=== PATIENT | female | born 1950 | race Caucasian/White ===

== ENCOUNTER 2020-04-10 12:25 | Outpatient (REF) | payer MEDICARE, SELFPAY ==
--- NOTE | 2020-04-10 12:35 | MM_ITS ---
EXAMINATION: BONE DENSITOMETRY CLINICAL INDICATION: Age-related osteoporosis without current pathological fracture.. COMPARISON: Previous BD dated 01/19/2017 and baseline BD dated 08/19/2006. TECHNIQUE: Using a [employer] DXA System (software version: 13.1) manufactured by [employer], dual-energy x-ray absorptiometry was performed of the lumbar spine and left hip. The images are of good technical quality. Summary results are attached. FINDINGS: AP SPINE L1-L4: Current: BMD 0.883 g/cm2, Z-score -0.5, T-score -2.5, osteoporosis, 0.2% increase from previous, 3.3% increase from baseline (<5% change is not significant). Prior: BMD 0.881 g/cm2. Baseline: BMD 0.855 g/cm2. LEFT FEMUR, NECK: Current: BMD 0.674 g/cm2, Z-score -0.7, T-score -2.6, osteoporosis. Prior: BMD 0.668 g/cm2. Baseline: BMD 0.708 g/cm2. LEFT FEMUR, TOTAL: Current: BMD 0.717 g/cm2, Z-score -0.5, T-score -2.3, osteopenia, 3.0% decrease from previous, 4.0% decrease from baseline (<5% change is not significant). Prior: BMD 0.739 g/cm2. Baseline: BMD 0.747 g/cm2. IDENTIFIED RISK FACTORS: Osteoporosis, tobacco use (current smoker). Early menopause, secondary osteoporosis, hysterectomy, bilateral oophorectomy. HISTORY OF FRACTURE: None listed. MEDICATIONS: Calcium supplements or multivitamin, vitamin D. MM/XR DEXA axial skeleton IMPRESSION: 1. DIAGNOSIS: Osteoporosis based on the lowest T-score value of -2.6 in the femoral neck applying World Health Organization criteria. 2. 10-YEAR FRACTURE RISK PREDICTION, FRAX: Major osteoporotic fracture (clinical spine, forearm, hip or shoulder) 10.8%. Hip fracture 4.5%. 3. Treatment Recommendations: NOF guidelines recommend consideration for treatment in postmenopausal women and men age 50 and older presenting with the following: -A hip or vertebral (clinical or morphometric) fracture. -T-score less than or equal to -2.5 at the femoral neck or spine after appropriate evaluation to exclude secondary causes. -Low bone mass at the hip or spine and a 10-year fracture probability by FRAX of greater than or equal to 3% for hip fracture or greater than or equal to 20% for major osteoporotic fracture based on the [place] adapted WHO algorithm. 4. Other Recommendations: All treatment decisions require clinical judgment and consideration of individual patient factors, including patient preferences, comorbidities, previous drug use, risk factors not captured in the FRAX model (e.g. frailty, falls, vitamin D deficiency, increased bone turnover, interval significant decline in bone density) and possible under or overestimation of fracture risk by FRAX. Additional medical evaluation for secondary cause of low bone mineral density may be appropriate. FUTURE SCAN RECOMMENDATION: People with diagnosed cases of osteoporosis or at high risk for fracture should have regular bone mineral density tests. For patients eligible for Medicare, routine testing is allowed once every 2 years. The testing frequency can be increased to one year for patients who have rapidly progressing disease, those who are receiving or discontinuing medical therapy to restore bone mass, or have additional risk factors.
--- NOTE | 2020-04-10 12:35 | MM_ITS ---
EXAMINATION: MM SCREENING DIGITAL BREAST TOMOSYNTHESIS, BILATERAL CLINICAL INFORMATION: Screening. Asymptomatic. The lifetime risk of breast cancer based on the Tyrer-Cuzick Model is 3%. COMPARISON: Mammography: 01/31/2018, 04/28/2016, 02/15/2015 TECHNIQUE: Digital breast tomosynthesis is performed in both the craniocaudal and mediolateral oblique views along with computer-aided detection (CAD). Synthesized 2D images are generated from the tomosynthesis. FINDINGS: There are scattered areas of fibroglandular density (ACR BI-RADS breast composition Category b). There are no significant masses, abnormal calcifications, or other abnormalities. Parenchymal pattern is similar to prior studies. No significant changes. MM/MM tomosynthesis screening BI IMPRESSION: No mammographic evidence of malignancy. ASSESSMENT: BI-RADS 1: Negative RECOMMENDATION: Routine annual mammography screening. This patient's information was entered into a reminder system with a target due date for their next mammogram.
== END 2020-04-10 12:26 | disposition home or self-care (01) ==
LOC: HO.MAMMO 12:25
PROVIDERS: PCP Nurse Practitioner Family; Visit Provider Nurse Practitioner Family
DX: Z12.31 Encounter for screening mammogram for malignant neoplasm of breast (principal); M81.0 Age-related osteoporosis without current pathological fracture; Z72.0 Tobacco use
CPT/HCPCS: 77063; 77067; 77080

== ENCOUNTER 2022-11-16 13:53 | Outpatient (REF) | payer OTHER, SELFPAY | END 2022-11-16 13:54 | disposition home or self-care (01) | LOC: HO.MAMMO 13:53 | PROVIDERS: PCP Internal Medicine; Visit Provider Internal Medicine | DX: Z12.31 Encounter for screening mammogram for malignant neoplasm of breast (principal) | CPT/HCPCS: 77063; 77067 ==

== ENCOUNTER → 2022-11-16 14:15 | Outpatient (BNV) | payer OTHER, SELFPAY | PROVIDERS: PCP Internal Medicine; Visit Provider Radiology Diagnostic Radiology | DX: Z12.31 Encounter for screening mammogram for malignant neoplasm of breast (principal) | CPT/HCPCS: 77063; 77067 ==

== ENCOUNTER 2022-11-26 14:03 | Outpatient (REF) | payer OTHER, SELFPAY ==
[2022-11-26 17:27] LABS: TSH reflex Free T4 0.35 uIU/mL (0.32-4.0)
== END 2022-11-26 14:04 | disposition home or self-care (01) ==
LOC: HO.HHCL 14:03
PROVIDERS: Visit Provider Internal Medicine
DX: E03.9 Hypothyroidism, unspecified (principal)
CPT/HCPCS: 36415; 84443

== ENCOUNTER 2023-05-25 14:29 | Outpatient (REF) | payer OTHER, SELFPAY ==
[2023-05-25 16:19] LABS: MANUAL DIFF FLAG NO
[2023-05-25 16:23] LABS: Basophils Absolute Auto 0.1 X10*3/uL (0.0-0.2); Basophils Percent Auto 0.7 % (0-2); Eosinophils Absolute Auto 0.4 X10*3/uL (0.0-0.4); Eosinophils Percent Auto 3.5 % (0-4); Hematocrit 41.9 % (37.0-47.0); Imm Gran Abs Auto 0.04 X10*3/uL (0.00-0.03); Imm Gran Pct Auto 0.4 % (0.0-0.4); Lymphocytes Absolute Auto 4.1 X10*3/uL (1.2-4.9); Lymphocytes Percent Auto 36.3 % (20-40); Mean Corpuscular HGB Conc 33.4 g/dl (31.0-35.0); Mean Corpuscular Hemoglobin 30.2 pg (27.0-33.0); Mean Corpuscular Volume 90.5 fL (80.0-98.0); Mean Platelet Volume 11.6 fL (9.4-12.3); Monocytes Absolute Auto 0.6 X10*3/uL (0.1-1.2); Monocytes Percent Auto 5.6 % (2-11); Neutrophils Percent Auto 53.5 % (45-73); Platelet Count 265 X10*3/uL (160-400); Red Blood Count 4.63 X10*6/uL (4.20-5.50); Red Cell Distribution Width 13.2 % (11.0-16.0); White Blood Count 11.2 X10*3/uL (4.8-10.8)
[2023-05-25 17:06] LABS: Alanine Aminotransferase 18 U/L (0-31); Albumin Level 4.4 g/dL (3.5-5.0); Alkaline Phosphatase 77 U/L (39-117); Anion Gap 15 (12-20); Aspartate Amino Transferase 19 U/L (5-31); Bilirubin Direct 0.2 mg/dL (0.0-0.5); Bilirubin Total 0.4 mg/dL (0.0-1.0); Blood Urea Nitrogen 13 mg/dL (9-16); Calcium 9.6 mg/dL (8.4-10.2); Carbon Dioxide 27 mmol/L (22-29); Chloride 103 mmol/L (96-108); Estimated Glomerular Filt Rate 58; Glucose Random 94 mg/dL (60-115); Lipase 33 U/L (8-78); Potassium 3.8 mmol/L (3.3-5.1); Sodium 141 mmol/L (135-145); Total Protein 7.5 g/dL (6.5-8.0)
== END 2023-05-25 14:30 | disposition home or self-care (01) ==
LOC: HO.HHCL 14:29
PROVIDERS: Visit Provider Internal Medicine
DX: I10 Essential (primary) hypertension (principal); R10.13 Epigastric pain
CPT/HCPCS: 36415; 80048; 80076; 83690; 85025

== ENCOUNTER 2023-11-18 12:29 | Outpatient (REF) | payer OTHER, SELFPAY ==
--- NOTE | ~2023-11-18 | MM_ITS ---
EXAMINATION: MM SCREENING DIGITAL BREAST TOMOSYNTHESIS, BILATERAL CLINICAL INFORMATION: Screening. Asymptomatic. COMPARISON: Mammography: Available prior examinations. TECHNIQUE: Digital breast tomosynthesis is performed in both the craniocaudal and mediolateral oblique views along with computer-aided detection (CAD). Synthesized 2D images are generated from the tomosynthesis. FINDINGS: There are scattered areas of fibroglandular density (ACR BI-RADS breast composition Category b). There are no significant masses, abnormal calcifications, or other abnormalities. MM/MM tomosynthesis screening BI IMPRESSION: No mammographic evidence of malignancy. ASSESSMENT: BI-RADS BI-RADS 1 - Negative RECOMMENDATION: Routine annual mammography screening. 1 year F/U This examination should not preclude the clinical evaluation of a suspicious palpable abnormality. This patient's information was entered into a reminder system with a target due date for their next mammogram. Electronically signed by: Taylor Brito DO 12/16/2023 07:01 PM EDT
== END 2023-11-18 12:30 | disposition home or self-care (01) ==
LOC: HO.MAMMO 12:29
PROVIDERS: PCP Internal Medicine; Visit Provider Internal Medicine
DX: Z12.31 Encounter for screening mammogram for malignant neoplasm of breast (principal)
CPT/HCPCS: 77063; 77067

== ENCOUNTER → 2023-11-18 13:15 | Outpatient (BNV) | payer OTHER, SELFPAY | PROVIDERS: PCP Internal Medicine; Visit Provider Internal Medicine | DX: Z12.31 Encounter for screening mammogram for malignant neoplasm of breast (principal) | CPT/HCPCS: 77063; 77067 ==

== ENCOUNTER 2024-09-21 10:54 | Outpatient (REF) | payer OTHER, SELFPAY ==
--- NOTE | ~2024-09-21 | XR_ITS ---
EXAMINATION: XR CHEST CLINICAL INFORMATION: smoker, weight loss COMPARISON: None available. TECHNIQUE: 2 views of the chest were obtained. FINDINGS: Atherosclerotic calcification is visible in the aortic knob. Heart size is within normal limits. The aorta is mildly tortuous. Lungs are mildly hyperexpanded. Lungs are clear. There is no pleural effusion. XR/XR chest 2V IMPRESSION: No acute disease. Electronically signed by: Jace Zuniga MD 09/21/2024 12:18 PM EDT
--- NOTE | ~2024-09-21 | XR_ITS ---
EXAMINATION: XR RIBS, BILATERAL CLINICAL INFORMATION: rib pain, bilateral COMPARISON: None available. TECHNIQUE: AP chest and 3 view rib x-rays FINDINGS: No rib fracture, deformity, or offset is identified. XR/XR ribs BI 3V IMPRESSION: No visible rib fracture. Electronically signed by: Jace Zuniga MD 09/21/2024 12:20 PM EDT
--- OUTSIDE RECORDS SUMMARY | 2024-09-21 12:58 | XMS_ITS | Encounter Summary ---
Author Organization [employer] Address [address] [place] [address] [address] [place] [address] Care Team Providers Care [employer]obile [employer] Membership Sales Agent Name Role Phone Samson Stone MD Primary Care Provide r Reason for Visit * Reason Onset Date Comments Chart Prep 09/20/2024 Encounter Details Date Type Department Care Team (Late st Contact Info) Description 09/20/2024 Telephone [facility] [address] [place] [address] Carly López MA Chart Prep Social History Tobacco Use Types Packs/Day Years Used Date Smoking Tobacco: Every Day Cigarettes Passive Smoke Exposure: Current Smokeless Tobacco: Never Depression Answer Date Recorded Patient Health Questionnaire-9 Score 1 11/25/2023 Patient Health Questionnaire-9 Score 1 11/25/2023 Last PHQ-9: Questionnaire Data Not on file 0 11/25/2023 Housing Stability Answer Date Recorded What is your housing situation today? I have nannette donaldson 08/24/[address] you li ve. Do you have problems with any of the following? None of the above 08/24/2024 Food Insecurity Answer Date Recorded Within the past 12 months, y ou worried that your food would run out before you got money to buy more: Never True 08/24/2024 Within the past 12 months,th e food you bought just didn't last and you didn't have enough money to get more: Never True Transportation Answer Date Recorded In the past 12 months, has l ack of transportation kept you from medical appts, meetings, work or from getting things needed for daily living? No 08/24/2024 Utilities Answer Date Recorded In the past 12 months, has t he electric, gas, oil or water company threatened to shut off services in your home? No 08/24/2024 Depression Answer Date Recorded Patient Health Questionnaire-2 Score 0 11/25/2023 Internet Access Answer Date Recorded Internet Access Q1 Yes 11/29/2023 Internet Access Q2 Not on file 11/29/2023 Comments Unknown Sex and Gender Information Value Date Recorded Sex Assigned at Female 01/26/2022 10:14 AM EDT Legal Sex Female 10:14 AM EDT Gender Identity Female 01/26/2022 10:14 AM EDT Sexual Orientation Choose not to disclose 2021 10:14 AM EDT documented as of this encounter Miscellaneous Notes * Telephone Encounter - Carly López MA - 09/20/2024 1:34 PM EDT ..Chart Prep Labs: not applicable Images: done Referrals: complete Vaccines due: Tdap, RSV, and Zoster Screenings: not applicable Overdue care gaps: Glu, SUSAN-7 documented in this encounter Plan of Treatment Upcoming Encounters Date Type Department Care Team (Late st Contact Info) Description 02/26/2025 1:00 PM EST Office Visit [facility] [address] [place], [place] [phone] Ofelia Guerrero, OD [address] [place] [address] documented as of this encounter Visit Diagnoses Not on filedocumented in this encounter Additional Health Concerns Assessment Noted Time PHQ-9 Depression Total Score: 1 11/25/19 24 1:07 PM EDT documented as of this encounter Care Teams [employer] Membership Sales Agent Relationship Specialty Start Date End Date Samson Stone MD [address] [place] [address] PCP - General Internal Medicine 05/12/21 documented as of this encounter
[2024-09-21 13:21] LABS: MANUAL DIFF FLAG NO
[2024-09-21 13:26] LABS: Basophils Absolute Auto 0.1 X10*3/uL (0.0-0.2); Basophils Percent Auto 0.6 % (0-2); Eosinophils Absolute Auto 0.1 X10*3/uL (0.0-0.4); Eosinophils Percent Auto 1.3 % (0-4); Hematocrit 34.6 % (37.0-47.0); Hemoglobin 11.6 g/dl (12.0-16.0); Imm Gran Abs Auto 0.02 X10*3/uL (0.00-0.03); Imm Gran Pct Auto 0.2 % (0.0-0.4); Lymphocytes Absolute Auto 2.9 X10*3/uL (1.2-4.9); Mean Corpuscular HGB Conc 33.5 g/dl (31.0-35.0); Mean Corpuscular Hemoglobin 31.8 pg (27.0-33.0); Mean Corpuscular Volume 94.8 fL (80.0-98.0); Mean Platelet Volume 11.3 fL (9.4-12.3); Monocytes Absolute Auto 0.4 X10*3/uL (0.1-1.2); Monocytes Percent Auto 4.7 % (2-11); Neutrophils Absolute Auto 5.8 x10*3/uL (2.0-8.3); Neutrophils Percent Auto 62.2 % (45-73); Platelet Count 250 X10*3/uL (160-400); Red Blood Count 3.65 X10*6/uL (4.20-5.50); Red Cell Distribution Width 14.9 % (11.0-16.0); White Blood Count 9.3 X10*3/uL (4.8-10.8)
[2024-09-21 13:49] LABS: Alanine Aminotransferase 23 U/L (0-31); Albumin Level 4.4 g/dL (3.5-5.0); Alkaline Phosphatase 232 U/L (39-117); Anion Gap 11 (12-20); Aspartate Amino Transferase 26 U/L (5-31); Bilirubin Total 0.4 mg/dL (0.0-1.0); Blood Urea Nitrogen 26 mg/dL (9-16); Carbon Dioxide 30 mmol/L (22-29); Chloride 103 mmol/L (96-108); Cholesterol 77 mg/dL (<200); Estimated Glomerular Filt Rate 29; Glucose Random 108 mg/dL (60-115); HDL Cholesterol 31 mg/dL (>40); LDL Cholesterol Calculated 26 mg/dL (<100); Potassium 3.8 mmol/L (3.3-5.1); Sodium 140 mmol/L (135-145); Total Protein 6.9 g/dL (6.5-8.0); Triglycerides 101 mg/dL (<150)
[2024-09-21 14:01] LABS: Erythrocyte Sedimentation Rate 13 MM/HR (0-20)
[2024-09-21 14:02] LABS: TSH reflex Free T4 0.37 uIU/mL (0.32-4.0)
== END 2024-09-21 10:55 | disposition home or self-care (01) ==
LOC: HO.HHCX 10:54
PROVIDERS: PCP Internal Medicine; Visit Provider Internal Medicine
DX: R07.81 Pleurodynia (principal); F17.210 Nicotine dependence, cigarettes, uncomplicated; J45.40 Moderate persistent asthma, uncomplicated; E11.9 Type 2 diabetes mellitus without complications; R63.4 Abnormal weight loss; E78.2 Mixed hyperlipidemia
CPT/HCPCS: 36415; 71046; 71110; 80053; 80061; 84443; 85025; 85652

== ENCOUNTER → 2024-09-21 11:33 | Outpatient (BNV) | payer OTHER, SELFPAY | PROVIDERS: PCP Internal Medicine; Visit Provider Radiology Diagnostic Radiology | DX: R07.82 Intercostal pain (principal); F17.210 Nicotine dependence, cigarettes, uncomplicated | CPT/HCPCS: 71046; 71110 ==

== ENCOUNTER 2024-11-09 10:22 | Outpatient (REF) | payer OTHER, SELFPAY ==
--- OUTSIDE RECORDS SUMMARY | 2024-11-09 11:10 | XMS_ITS | Encounter Summary ---
Author Organization [employer] Address [address] [place] [address] [address] [place] [address] Care Team Providers Care Windows Security Analyst Name Role Phone Samson Stone MD Primary Care Provide r Reason for Visit * Reason Onset Date Comments Results 10/31/2024 VNA Referral 10/31/2024 Encounter Details Date Type Department Care Team (Latest Contact Info) Description 10/31/2024 Results Follow-Up [facility] [address] [place], [place] [phone] Wendy Alvarado RN [address] [place] [address] POCT Glucose, Comprehensive Metabolic Panel, Lipid Panel, Standard, Additional followed-up results: 3 Social History Tobacco Use Types Packs/Day Years [...] encounter Miscellaneous Notes * Telephone Encounter - Wendy Alvarado RN - 11/07/2024 1:00 PM EDT Per Lenora Gonzales, they tried to admit pt for VNA again and pt refused stating won't start until her next appt with PCP * Telephone Encounter - Wendy Alvarado RN - 10/31/2024 3:16 PM EDT Per [facility] nurse liaison Lenora Gonzales, when referral was given to them, pt was hospitalized. Hospital had told pt that they were giving her VNA upon discharge but it doesn't look like they did. Referral packet regenerated and placed on PCP's desk. Pending signature. * Telephone Encounter - Wendy Alvarado RN - 10/31/2024 8:44 AM EDT Scanned [facility] discharge summary in under media DOS 09/24/24. Will discuss VNA status with S nurse liaison later today * Telephone Encounter - Wendy Alvarado RN - 10/31/2024 8:42 AM EDT ----- Message from Samson Reese MD sent at 10/30/2024 3:51 PM EDT ----- Pt was admitted to [facility] back in September 22 for hypercalcemia. I do not see the Discharge summary in EPIC. Please obtain. She also missed her f/u appointment with me, please schedule one. She had been referred to VNA for high risk elder, med management etc. Do we know the status ? ----- Message ----- From: Ruth Ann Pandey MA Sent: 09/21/2024 10:15 AM EDT To: Samson Reese MD documented in this encounter Plan of Treatment Upcoming Encounters Date Type Department Care Team (Late st Contact Info) Description 11/23/2024 11:00 AM EDT Office Visit [facility] [address] [place] [address] Samson Stone MD [address] [place] [address] 02/26/2025 1:00 PM EST Office Visit [facility] [address] [place] [address] Tarka Ofelia, OD [address] [place] [address] documented as of this encounter Visit Diagnoses Not on filedocumented in this encounter Additional Health Concerns Assessment Noted Time PHQ-9 Depression Total Score: 1 11/25/19 24 1:07 PM EDT documented as of this encounter Care Teams Windows Security Analyst Relationship Specialty Start Date End Date Samson Stone MD [address] [place] [address] PCP - General Internal Medicine 05/12/21 documented as of this encounter
[2024-11-09 11:46] LABS: Anion Gap 12 (12-20); Blood Urea Nitrogen 20 mg/dL (9-16); Calcium 8.7 mg/dL (8.4-10.2); Carbon Dioxide 28 mmol/L (22-29); Chloride 105 mmol/L (96-108); Estimated Glomerular Filt Rate 42; Potassium 4.4 mmol/L (3.3-5.1); Sodium 141 mmol/L (135-145)
== END 2024-11-09 10:23 | disposition home or self-care (01) ==
LOC: HO.HHCL 10:22
PROVIDERS: PCP Internal Medicine; Visit Provider Internal Medicine
DX: R79.89 Other specified abnormal findings of blood chemistry (principal)
CPT/HCPCS: 36415; 80048

== ENCOUNTER 2024-12-08 12:35 | Outpatient (REF) | payer OTHER, SELFPAY ==
--- NOTE | ~2024-12-08 | CT_ITS ---
EXAMINATION: CT CHEST WITHOUT IV CONTRAST, CT ABDOMEN PELVIS WITH IV CONTRAST INDICATION: heavy smoker with > 20 lbs weight loss, needs to rule out lung malignancy COMPARISON: There are no prior studies available for comparison.. TECHNIQUE: CT scan of the chest, abdomen and pelvis was performed following administration of 85 mL Omnipaque 350 using standard departmental protocol. The chest was scanned prior to the administration of intravenous contrast. Coronal and sagittal reformatted images were generated and reviewed. The patient received oral contrast material. This CT exam was performed with one or more of the following dose reduction techniques: automated exposure control, adjustment of the mA and/or kV according to patient size, use of iterative reconstruction technique. DLP: 248 mGy-cm CHEST: THYROID: The thyroid is unremarkable. LUNGS: There is minimal subsegmental atelectasis versus scarring at the lung bases. The lungs are otherwise clear. MEDIASTINUM: There is no mediastinal lymphadenopathy. ALLIE: There is no hilar lymphadenopathy. CARDIOVASCULATURE: The heart is normal in size. There is no pericardial effusion. The thoracic aorta is normal in caliber. DEGREE OF CORONARY CALCIFICATION: severe PLEURA: There is no pleural effusion. No pneumothorax. MAIN AIRWAYS: The mainstem bronchi and proximal branches are patent. There is a hollow ring shaped structure in the left mainstem bronchus (series 4, images 65-68; series 6, images 41-44; and series 7 image 43) this may represent an aspirated foreign body. AXILLA: There is no axillary lymphadenopathy. SOFT TISSUES: Unremarkable. BONES: The bones are diffusely osteopenic. There are multiple old right rib fractures. ABDOMEN: LIVER: The liver is normal in size and contour. No liver mass is identified. The hepatic and portal veins are patent. GALLBLADDER / BILE DUCTS: The gallbladder is surgically absent. There is no intra or extrahepatic biliary ductal dilatation. SPLEEN: The spleen is normal in size. No focal splenic lesion is identified. PANCREAS: The pancreas is unremarkable in appearance. ADRENAL GLANDS: Within normal limits. KIDNEYS/RETROPERITONEUM: No renal calculi are identified. There is no hydronephrosis. No renal masses are identified. LYMPH NODES: No abdominal or pelvic lymphadenopathy. VASCULATURE: The abdominal aorta demonstrates atherosclerotic calcification, but is normal in caliber. MESENTERY/PERITONEUM: No free fluid. No masses. There is no free intraperitoneal gas. STOMACH: The stomach is unremarkable. SMALL BOWEL: The small bowel is normal in caliber. COLON: There is a very large amount of stool throughout the colon. APPENDIX: The appendix is not seen, however no inflammatory changes are seen adjacent to the cecum. URINARY BLADDER/PELVIC ORGANS: The urinary bladder is collapsed, limiting detailed evaluation. The patient is status post hysterectomy. BONES / SOFT TISSUES: The bones are diffusely osteopenic. CT/CT abdomen pelvis w IV con IMPRESSION: 1. Diffuse osteopenia of all of the visualized osseous structures. The possibility of multiple myeloma is raised. Laboratory evaluation is suggested. 2. Hollow, ringlike structure in the left mainstem bronchus which could represent an aspirated foreign body. 3. Very large amount of stool throughout the colon. Electronically signed by: Apolinar Pagan MD 12/08/2024 03:11 PM EDT
[2024-12-08] MEDS: iohexoL 350 MG/ML 100 ML INFUS..BTL IV (14:52)
[2024-12-08] MEDS: Barium Sulfate Oral (Vanilla) 450 ML ORAL.SUSP 900 ML PO (14:53)
--- OUTSIDE RECORDS SUMMARY | 2024-12-08 14:56 | XMS_ITS | Encounter Summary ---
Author Organization [employer] Address [address] [place] [address] 7 [place] [address] Care Team Providers Care Yarn Spooler Name Role Phone Samson Stone MD Primary Care Provide r Reason for Visit * Reason Onset Date Comments Med Refill 10/02/2024 Encounter Details Date Type Department Care Team ([facility] st Contact Info) Description 10/02/2024 Telephone [facility] [address] [place], [place] [phone] Samson Stone MD [address] [place], [place] [phone] Med Refill Social History Tobacco Use Types Packs/Day Years [...] encounter Miscellaneous Notes * Telephone Encounter - Angelina Ochoa LPN - 10/02/2024 1:52 PM EDT Medication pended to PCP for approval. * Telephone Encounter - Reji Hooper - 10/02/2024 1:39 PM EDT TC from pt requesting medication refill. Medications needing refill : metFORMIN XR (Glucophage-XR) 500 MG 24 hr tablet To be sent to: [facility] [address] [place] [address] documented in this encounter Plan of Treatment Upcoming Encounters Date Type Department Care Team (Late st Contact Info) Description 02/26/2025 1:00 PM EST Office Visit [facility] [address] [place] [address] Ofelia Guerrero, OD [address] [place] [address] documented as of this encounter Visit Diagnoses Not on filedocumented in this encounter Additional Health Concerns Assessment Noted Time PHQ-9 Depression Total Score: 1 11/25/19 24 1:07 PM EDT documented as of this encounter Care Teams Yarn Spooler Relationship Specialty Start Date End Date Samson Stone MD [address] [place] [address] PCP - General Internal Medicine 05/12/21 documented as of this encounter
--- OUTSIDE RECORDS SUMMARY | 2024-12-08 14:57 | XMS_ITS | Encounter Summary ---
Author Organization [employer] Address [address] [place] [address] [address] [place] [address] Care Team Providers Care Forest Products Teacher Name Role Phone Samson Stone MD Primary Care Provide r Reason for Visit * Reason Onset Date Comments Reschedule 08/24/2023 Encounter Details Date Type Department Care Team ([facility] st Contact Info) Description 08/24/2023 Telephone [facility] [address] [place], [place] [phone] Samson Stone MD [address] [place], [place] [phone] Reschedule Social History Tobacco Use Types Packs/Day Years Used Date Smoking Tobacco: Every Day Cigarettes Passive Smoke Exposure: Current Smokeless Tobacco: Never Depression Answer Date Recorded Patient Health Questionnaire-9 Score 0 11/26/2022 Housing Stability Answer Date Recorded What is your housing situation today? I have nannettesharyn donaldson 01/25/[address] you li ve. Do you have problems with any of the following? None of the above 01/25/2023 Food Insecurity Answer Date Recorded Within the past 12 months, y ou worried that your food would run out before you got money to buy more: Never True 01/25/2023 Within the past 12 months,th e food you bought just didn't last and you didn't have enough money to get more: Never True Transportation Answer Date Recorded In the past 12 months, has l ack of transportation kept you from medical appts, meetings, work or from getting things needed for daily living? No 01/25/2023 Utilities Answer Date Recorded In the past 12 months, has t he electric, gas, oil or water company threatened to shut off services in your home? No 01/25/2023 Depression Answer Date Recorded Patient Health Questionnaire-2 Score 0 11/26/2022 Comments Unknown Sex and Gender Information Value Date Recorded Sex Assigned at Female 01/26/2022 10:14 AM EDT Legal Sex Female 10:14 AM EDT Gender Identity Female 01/26/2022 10:14 AM EDT Sexual Orientation Choose not to disclose 2021 10:14 AM EDT documented as of this encounter Miscellaneous Notes * Telephone Encounter - Renuka Houston - 08/24/2023 11:29 AM EDT Tc from pt requesting r/s 07/28 Pt is also requesting a call back with clarifications on a study but not sure for what it is. documented in this encounter Plan of Treatment Upcoming Encounters Date Type Department Care Team (Late st Contact Info) Description 02/26/2025 1:00 PM EST Office Visit [facility] [address] [place] [address] Tarka, Ofelia, OD [address] [place] [address] documented as of this encounter Visit Diagnoses Not on filedocumented in this encounter Additional Health Concerns Assessment Noted Time PHQ-9 Depression Total Score: 0 11/27/19 23 1:06 PM EDT documented as of this encounter Care Teams Forest Products Teacher Relationship Specialty Start Date End Date Samson Stone MD [address] [place] [address] PCP - General Internal Medicine 05/12/21 documented as of this encounter
--- OUTSIDE RECORDS SUMMARY | 2024-12-08 14:57 | XMS_ITS | Encounter Summary ---
Author Organization [employer] Address [address] [place] [address] [address] [place] [address] Care Team Providers Care Pediatric Dentist Name Role Phone Samson Stone MD Primary Care Provide r Encounter Details Date Type Department Care Team (Late st Contact Info) Description 07/17/2022 Orders Only [facility] [address] [place] [address] Taylor Bautista, MANN Social History Tobacco Use Types Packs/Day Years Used Date Smoking Tobacco: Never Assessed Comments Unknown Sex and Gender Information Value Date Recorded Sex Assigned at Female 01/26/2022 10:14 AM EDT Legal Sex Female 10:14 AM EDT Gender Identity Female 01/26/2022 10:14 AM EDT Sexual Orientation Choose not to disclose 2021 10:14 AM EDT documented as of this encounter Plan of Treatment Upcoming Encounters Date Type Department Care Team (Late st Contact Info) Description 02/26/2025 1:00 PM EST Office Visit [facility] [address] [place] [address] Ofelia Guerrero, OD [address] [place] [address] documented as of this encounter Visit Diagnoses Not on filedocumented in this encounter Care Teams Pediatric Dentist Relationship Specialty Start Date End Date Samson Stone MD [address] [place] [address] PCP - General Internal Medicine 05/12/21 documented as of this encounter
--- OUTSIDE RECORDS SUMMARY | 2024-12-08 14:57 | XMS_ITS | Clinical Summary ---
Author Organization [employer] Address [address] [place] [address] [address] [place] [address] Care Team Providers Care Egg Smeller Name Role Phone Samson Stone MD Primary Care Provide r Allergies Active Allergy Reactions Criticality Noted Date Comments Aspirin Unknown 03/27/2010 Ibuprofen Rash Low 03/27/2010 Medications albuterol (ProAir HFA) 108 (90 Base) MCG/ACT inhaler inhale 2 puff by inhalation route 4 times every day as needed 021 Active glucose blood (FREESTYLE LITE) test strip check by fingerstick route 2 times every day 022 Active albuterol (2.5 MG/3ML) 0.083% nebulizer solutionIndicatio ns:Moderate persistent asthma without complication inhale 3 milliliter by nebulization route 3 times every day 75 mL 3 023 Active Fluticasone-Salme terol (Wixela Inhub) 500-50 MCG/ACT aerosol powder Take 1 puff by mouth 2 times daily. INHALE 1 PUFF BY MOUTH TWICE A DAY 60 each 11 024 Active alendronate (Fosamax) 70 MG tablet TAKE 1 TABLET BY MOUTH ONCE A WEEK. TAKE IN THE MORNING WITH A FULL GLASS OF WATER ON AN EMPTY STOMACH AND DO NOT TAKE ANYTHING ELSE BY MOUTH OR LIE DOWN FOR THE NEXT 30 MINUTES. 4 tablet 5 025 Active metoprolol succinate XL (Toprol-XL) 50 MG 24 hr tabletIndications :Primary hypertension TAKE 1 TABLET BY MOUTH EVERY DAY 30 tablet 5 025 Active levothyroxine (Synthroid) 88 MCG tabletIndications :Acquired hypothyroidism TAKE 1 TABLET BY MOUTH BEFORE BREAKFAST 30 tablet 5 Active lansoprazole (Prevacid) [address] capsule TAKE 1 CAPSULE BY MOUTH BEFORE BREAKFAST 30 capsule 5 Active lidocaine (Lidoderm) 5 % patchIndications: Right-sided chest wall pain Apply 1 patch topically Once per day. Remove & discard patch within 12 hours or as directed by MD. 30 patch 1 Active atorvastatin (Lipitor) 80 MG tablet TAKE 1 TABLET BY MOUTH AT BEDTIME 30 tablet 5 025 Active metFORMIN XR (Glucophage-XR) 500 MG 24 hr tabletIndications :IFG (impaired fasting glucose) Take 1 tablet (500 mg) by mouth 2 times daily. 60 tablet 3 025 Active metFORMIN XR (Glucophage-XR) 500 MG 24 hr tabletIndications :IFG (impaired fasting glucose) TAKE 2 TABLETS BY MOUTH TWICE DAILY WITH MEALS 112 tablet 5 025 2024 Discontinued(R eorder (will not trigger notification to Pharmacy)) atorvastatin (Lipitor) 80 MG tablet TAKE 1 TABLET BY MOUTH AT BEDTIME 30 tablet 5 025 2024 Discontinued(R eorder (will not trigger notification to Pharmacy)) Active Problems Problem Noted Date Diagnosed Date Weight loss 09/21/2024 Assessment & Plan (09/21/2024 3:42 PM EDT): Pt here for a follow up. Patient has lost 29 lbs since 04/2023. Pt report loss of appetite, nausea, and persistent GERD On 05/25/[address] of her Abdomen due to previous concerns of Epigastric discomfort. Her insurance denied the request. I then placed an order for an Abdominal US on 11/25/2023. Pt did not have it done. Previously I had referred patient to GI for evaluation and EGD. Pt missed the appointment that we had scheduled for 12/21/2023. Plan: Obtain CBC, CMP, TSH, ESR, Chest x-ray, CT of abdomen to rule out pancreatic malignancy, pt is a smoker ( > 50 yrs ) Refer again to GI for EGD. Rib pain on left side 09/21/2024 Assessment & Plan (09/21/2024 10:31 AM EDT): Pt with Hx of fall c/o persistent bilateral rib pain Plan: Obtain rib x-rays Epigastric abdominal pain 05/25/2023 Assessment & Plan (09/21/2024 3:45 PM EDT): Pt with previous c/o new onset of epigastric abdominal pain On previous exam there was tenderness to palpation over the epigastrium I had recommended a Ct of Abdomen. This was denied by her medical insurance. Lipase, CBC, LFTs were within normal limits Referred to GI, appointment scheduled for 12/21/2023 at [facility], Patient missed appointment. Last visit I ordered an abdominal US, pt did not have it done. Plan: Patient has been referred back to GI. I ordered a CT of her Abdomen and Pelvis again to rule out malignancy Referred to [facility] Follow up after testing Assessment & Plan (11/25/2023 1:05 PM EDT): Pt with previous c/o new onset of epigastric abdominal pain On previous exam there was tenderness to palpation over the epigastrium I had recommended a Ct of Abdomen. This was denied by her medical insurance Lipase, CBC, LFTs were within normal limits Referred to GI, appointment scheduled for 12/21/2023 at [facility] Will order an abdominal US Follow up after testing Assessment & Plan (05/25/2023 2:21 PM EST): Pt with c/o new onset of epigastric abdominal pain On exam there is tenderness to palpation over the epigastrium Plan: Ct of Abdomen, Lipase, CBC, LFTs Referred to GI Follow up after testing Sore throat 11/26/2022 Assessment & Plan (05/25/2023 1:56 PM EST): Pt with previous c/o persistent sore throat, on exam no abnormalities, neck no palpable masses Previous visit she was referred for ENT evaluation for laryngoscopy given her Hx of smoking. Appointment scheduled for 12/08/2022. She did not go Assessment & Plan (11/26/2022 1:23 PM EDT): Pt with c/o persistent sore throat, on exam no abnormalities, neck no palpable masses Previous visit she was referred for ENT evaluation for laryngoscopy given her Hx of smoking. Appointment scheduled for 12/08/2022 Preventative health care 09/15/2022 Assessment & Plan (09/21/2024 3:46 PM EDT): Mammogram: 11/18/2023 Normal Pap Smear: s/p OSCAR 30 yrs ago per her report Colonoscopy: 12/14/2017 Assessment & Plan (11/26/2022 1:00 PM EDT): Mammogram: 11/17/2022 Normal Pap Smear: s/p OSCAR 30 yrs ago per her report Colonoscopy: 12/14/2017 Assessment & Plan (09/15/2022 11:11 AM EDT): Mammogram: 04/10/2020 , will schedule for a repeat Pap Smear: s/p OSCAR 30 yrs ago per her report Colonoscopy: 12/14/2017 Vaccines: Dexa scan:. Forgetfulness 05/10/2015 Acquired hypothyroidism 01/01/2015 Assessment & Plan (05/25/2023 1:55 PM EST): TSH last checked 07/29/2022 suppressed We decreased the dose of levothyroxine from 112 mcg To 88 Repeat TSH 10/2022 Normal Assessment & Plan (11/26/2022 1:21 PM EDT): TSH last checked 07/29/2022 suppressed We decreased the dose of levothyroxine from 112 mcg To 88 previously Will repeat TSH Assessment & Plan (09/15/2022 11:06 AM EDT): TSH last checked 07/29/2022 suppressed We decreased the dose of levothyroxine from 112 mcg To 88 Cigarette smoker 01/01/2015 Assessment & Plan (09/21/2024 3:48 PM EDT): Pt with over 50 yr smoking 1/2 to 1 ppd ( >30 pack years on average ) Previous visi I ordered PFTs and Low dose Chest CT.we received a message from [facility] radiology pt was unable to be scheduled . Pt was then referred to Thoracic surgeon at [facility] [place] the Low dose CT appointment scheduled for 12/11/2022. It appears pt missed appointment. Patient was seen at [facility] 05/13/2024 after she had been c/o sob as part of her work up she had a CT of Chest 05/13/2024 that showed: No acute abnormality. Assessment & Plan (05/25/2023 1:56 PM EST): Pt with over 50 yr smoking 1/2 to 1 ppd ( >30 pack years on average ) Previous visi I ordered PFTs and Low dose Chest CT.we received a message from [email or web address] pt was unable to be schedule . Pt was then referred to Thoracic surgeon at [facility] for the Low dose CT appointment scheduled for 12/11/2022. It appears pt missed appointment Assessment & Plan (11/26/2022 1:20 PM EDT): Pt with over 50 yr smoking 1/2 to 1 ppd ( >30 pack years on average ) Previous visi I ordered PFTs. Order pending and Low dose Chest CT.we received a message from [email or web address] pt was unable to be schedule . Pt was then referred to Thoracic surgeon at [facility] for the Low dose CT appointment scheduled for 12/11/2022 Assessment & Plan (09/15/2022 11:49 AM EDT): Pt with over 50 yr smoking 1/2 to 1 ppd ( >30 pack years on average ) Previous visi I ordered PFTs and Low dose Chest CT.we received a message from [email or web address] pt was unable to be schedule . Will refer to Thoracic surgeon at [facility] for the Low dose CT and will re order PFTs Essential hypertension 01/01/2015 Assessment & Plan (09/21/2024 10:12 AM EDT): Patient with Hypertension currently controlled on a regimen of: Lisinopril 20/25 1 tab po daily and Metoprolol XR 50 mg po daily Given adequate blood pressure control will continue with current medical regimen. Most recent electrolytes, Bun and Creatinine done on: Lab Results Component Value Date NA 141 05/25/2023 NA 139 07/29/2022 K 3.8 05/25/2023 K 4.4 07/29/2022 CL 103 05/25/2023 CL 103 07/29/2022 BUN 13 05/25/2023 BUN 16 07/29/2022 CREATININE 0.94 05/25/2023 CREATININE 0.88 07/29/2022 were within normal limits. Will repeat patient advised to adhere to a low sodium diet, encouraged about medication compliance, counseled about weight loss. Assessment & Plan (11/25/2023 1:07 PM EDT): Patient with Hypertension currently controlled on a regimen of: Lisinopril 20/25 1 tab po daily and Metoprolol XR 50 mg po daily Given adequate blood pressure control will continue with current medical regimen. Most recent electrolytes, Bun and Creatinine done on: 05/25/2023 were within normal limits. patient advised to adhere to a low sodium diet, encouraged about medication compliance, counseled about weight loss. Assessment & Plan (05/25/2023 1:53 PM EST): Patient with Hypertension currently controlled on a regimen of: Lisinopril 20/25 1 tab po daily and Metoprolol XR 50 mg po daily Given adequate blood pressure control will continue with current medical regimen. Most recent electrolytes, Bun and Creatinine done on: 07/29/2022 were within normal limits. Today will order a repeat BMP patient advised to adhere to a low sodium diet, encouraged about medication compliance, counseled about weight loss. Assessment & Plan (09/15/2022 11:04 AM EDT): Patient with Hypertension currently controlled on a regimen of: Lisinopril 20/25 1 tab po daily and Metoprolol XR 50 mg po daily Given adequate blood pressure control will continue with current medical regimen. Most recent electrolytes, Bun and Creatinine done on: 07/29/2022 were within normal limits. patient advised to adhere to a low sodium diet, encouraged about medication compliance, counseled about weight loss. GERD (gastroesophageal reflux disease) 5 Assessment & Plan (09/21/2024 3:43 PM EDT): Pt with c/o GERD, uses Lansoprazole , not improving despite the use of PPI. Patient referred to Gastroenterology for evaluation, given her Hx of smoking, she also has a Hx of PUD per her report. Appointment was scheduled at [facility] 12/21/2023 Pt reminded of appointment last visit. Unfortunately, she missed appointment. Today I had a long and detailed conversation with her given that she has lost > 20 lbs and given her hx of heavy smoking we need to rule out GI malignancy. Pt verbalized understanding. I have placed another referral. I have also ordered again a CT of her Abdomen and Pelvis Assessment & Plan (11/25/2023 1:03 PM EDT): Pt with c/o GERD, uses Lansoprazole , not improving despite the use of PPI. Patient referred to Gastroenterology for evaluation, given her Hx of smoking, she also has a Hx of PUD per her report. Appointment scheduled at [facility] 12/21/2023 Pt reminded of appointment today. Assessment & Plan (05/25/2023 2:20 PM EST): Pt with c/o GERD, uses Lansoprazole , lately she complaints of epigastric abdominal pain, not improving despite the use of PPI. Plan: Gastroenterology evaluation, given her Hx of smoking, she also has a Hx of PUD per her report Assessment & Plan (09/15/2022 11:47 AM EDT): Uses Lansoprazole Mixed hyperlipidemia 01/01/2015 Assessment & Plan (09/21/2024 10:13 AM EDT): Patient with elevated lipids. Most recent lipid profile from: Lab Results Component Value Date TRIG 150 (H) 07/29/2022 Currently on a regimen of: Atorvastatin 80 mg po daily . For now will continue with current regimen . Repeat Lipid profile advised to try to adhere to a low cholesterol diet, counseled and educated about diet and exercise, Patient encouraged to come up with a personal goal for weight loss. Assessment & Plan (09/15/2022 11:04 AM EDT): Patient with elevated lipids. Most recent lipid profile from: 06/09/2021 shows a total cholesterol of: 95 triglycerides of: 125 HDL of: 31 and LDL of: 43 Currently on a regimen of: Atorvastatin 80 mg po daily . For now will continue with current regimen advised to try to adhere to a low cholesterol diet, counseled and educated about diet and exercise, Patient encouraged to come up with a personal goal for weight loss. Moderate persistent asthma 01/01/2015 Assessment & Plan (09/21/2024 3:46 PM EDT): No Recent exacerbations Continue on Advair; use albuterol prn. Use Nebulizations prn Assessment & Plan (09/15/2022 11:05 AM EDT): No Recent exacerbations Continue on Advair; use albuterol prn. Use Nebulizations prn Osteoporosis 01/01/2015 Assessment & Plan (09/15/2022 11:45 AM EDT): Continue on Alendronate, calcium & vitamin D. Type 2 diabetes mellitus 01/01/2015 Assessment & Plan (09/21/2024 10:11 AM EDT): Pt here for follow up in terms of her Diabetes DM controlled on a regimen of: Metformin XR 500 mg 2 tabs po BID Hgb A1c 09/21/2024: Eye exam was last done by Dr. Mary (opthalmologist) Microalbumin 06/09/2021 was 1.4, Will repeat Foot check today is risk of: zero Pt reports compliance with Asa 81 mg po daily plan: Continue current regimen Pt advised to: adhere to diabetic diet check your blood sugars regularly check your feet on a daily basis. Assessment & Plan (11/25/2023 1:19 PM EDT): Pt here for follow up in terms of her Diabetes DM controlled on a regimen of: Metformin XR 500 mg 2 tabs po BID Hgb A1c 11/25/2023: 6.4 Eye exam was last done by Dr. Mary (opthalmologist) Microalbumin 06/09/2021 was 1.4 Foot check today is risk of: zero Pt reports compliance with Asa 81 mg po daily plan: Continue current regimen Pt advised to: adhere to diabetic diet check your blood sugars regularly check your feet on a daily basis. Assessment & Plan (05/25/2023 2:14 PM EST): Pt here for follow up in terms of her Diabetes DM controlled on a regimen of: Metformin XR 500 mg 2 tabs po BID Hgb A1c 05/25/2023: 6.7 Eye exam was last done by Dr. Mary (opthalmologist) Microalbumin 06/09/2021 was 1.4 Foot check today is risk of: zero Pt reports compliance with Asa 81 mg po daily plan: Continue current regimen Pt advised to: adhere to diabetic diet check your blood sugars regularly check your feet on a daily basis. Assessment & Plan (11/26/2022 1:19 PM EDT): Pt here for follow up in terms of her Diabetes DM controlled on a regimen of: Metformin XR 500 mg 2 tabs po BID Hgb A1c 09/15/2022 was 6.6 Eye exam was last done by Dr. Mary (opthalmologist) Microalbumin 06/09/2021 was 1.4 Foot check today is risk of: zero Pt reports compliance with Asa 81 mg po daily plan: Continue current regimen Pt advised to: adhere to diabetic diet check your blood sugars regularly check your feet on a daily basis. Assessment & Plan (09/15/2022 11:02 AM EDT): Pt here for follow up in terms of her Diabetes DM controlled on a regimen of: Metformin XR 500 mg 2 tabs po BID Hgb A1c 09/15/2022 was 6.6 Eye exam was last done by Dr. Mary (opthalmologist) Microalbumin 06/09/2021 was 1.4 Foot check today is risk of: zero Pt reports compliance with Asa 81 mg po daily plan: Continue current regimen Pt advised to: adhere to diabetic diet check your blood sugars regularly check your feet on a daily basis. Encounters Date Type Department Care Team Description 11/28/2024 Refill [facility] [address] [place] [address] Samson Stone MD IFG (impaired fasting glucose) 11/23/2024 Telephone [facility] [address] [place] [address] Samson Stone MD Appointment Request 11/23/2024 Telephone [facility] [address], [place] [address] Samson Stone MD Appointment Request 11/22/2024 Telephone [facility] [address] [place] [address] Samson Stone MD Chart Prep 11/20/2024 Refill [facility] [address] [facility] [place], [place] [address] Samson Stone MD 10/31/2024 Orders Only [facility] [address], [place] [address] Samson Stone MD 10/31/2024 Refill [facility] [address] [place], [place] [address] Samson Stone MD IFG (impaired fasting glucose); Elevated serum creatinine 10/31/2024 Results Follow-Up [facility] [address], [place] [address] Wendy Alvarado, MANN POCT Glucose, Comprehensive Metabolic Panel, Lipid Panel, Standard, Additional followed-up results: 3 10/24/2024 Telephone [facility] [address] [place], [place] [address] Samson Stone MD 10/23/2024 Telephone [facility] [address], [place] [address] Samson Stone MD Chart Prep 10/02/2024 Telephone [facility] [address], [place] [address] Samson Stone MD Med Refill 09/26/2024 Refill [facility] [address] [facility] [address] [place], [place] [address] Samson Stone MD IFG (impaired fasting glucose) 09/21/2024 10:00 AM EDT Office Visit [facility] [place] [address] Samson Stone MD Type 2 diabetes mellitus without complication, without long-term current use of insulin ([facility]) (Primary Dx); Essential hypertension; Mixed hyperlipidemia; Weight loss; Gastroesophageal reflux disease without esophagitis; Cigarette smoker; Moderate persistent asthma without complication; Rib pain on left side; Rib pain on right side; Preventative health care; Epigastric abdominal pain 09/21/2024 Telephone [facility] [address] [place] [phone] Samson Stone MD CRITICAL LAB 09/21/2024 Patient Outreach [facility] [address] [place] [address] [phone] Samson Stone MD Care Coordination (CH[facility] outreach for [facility] and food needs-referral completed /) 09/21/2024 Telephone [facility] [address] [place] [address] [phone] Wendy Alvarado RN [facility] Referral 09/21/2024 Travel 09/20/2024 Telephone [facility] [address] [place] [address] [phone] Carly López MA Chart Prep 09/13/2024 Patient Outreach [facility] [address] [place], [place] [phone] Samson Stone MD Pre-visit Planning (SDOH was already completed) from Last 3 Months Immunizations Immunization Administration Dates Next Due Influenza injectable quadriv alent IIV4 with preservative 02/04/2015 Influenza injectable quadriv alent preservative free 02/10/2022 Influenza, IIV3, injectable 01/16/2012,1 ,03/07/2008,12/21 Pfizer Covid-19 Vaccine 12+ 08/01/2020, Pneumococcal Conjugate PCV 13 01/01/2015 Pneumococcal Polysaccharide PPSV23 08/24,01/16/2012,01/20/2009,07/17 Pneumococcal, Unspecified 07/17/2008 TD (adult), 2 Lf tetanus tox oid, preservative free, adsorbed 02/20/2007,03/29/1996,01/04/1990 Tdap 10/28/2024,04/25/2012 Zoster, live 01/01/2015 Family History Medical History Relation Name Comments Diabetes Father Diabetes Sister Relation Name Status Comments Father Sister Social History Tobacco Use Types Packs/Day Years Used Date Smoking Tobacco: Every Day Cigarettes Passive Smoke Exposure: Current Smokeless Tobacco: Never Tobacco Cessation:Ready to Q uit: Not Asked; Counseling Given: Not Answered Depression Answer Date Recorded Patient Health Questionnaire-9 [...] not to disclose 2021 10:14 AM EDT Last Filed Vital Signs Vital Sign Reading Time Taken Comments Blood Pressure 114/62 09/21/2024 10:13 AM EDT Pulse 55 09/21/2024 10:13 AM EDT Temperature 36.3 C (97.4 F) 09/21/2024 10:13 AM EDT Respiratory Rate 14 09/21/2024 10:13 AM EDT Oxygen Saturation 98% 09/21/2024 10:13 AM EDT Inhaled Oxygen Concentration - - Weight 41.4 kg (91 lb 3.2 oz) 09/21/2024 10:13 A M EDT Height 149.9 cm (4' 11 ) 09/21/2024 10:13 AM EDT Body Mass Index 18.42 09/21/2024 10:13 AM EDT Plan of Treatment Upcoming Encounters Date Type Department Care Team (Late st Contact Info) Description 02/26/2025 1:00 PM EST Office Visit [facility] [address] [place] [address] Ofelia Guerrero, OD [address] [place] [address] Health Maintenance Due Date Last Done Comments Alcohol/Substance Use Screening 1960 Hepatitis C Screening 1966 Zoster Vaccines (2 of 3) 02/26/2015 01/01/2015 Diabetes: Urine Protein Screening 06/09/2022 06/09/2021 RSV Patients and Patients Aged 60 years or older (1 - 1-dose 75+ series) 09/18/2023 Depression Screening 11/24/2024 11/25/2023, 11/25/19 COVID-19 Vaccine ( season) 2024 08/01/2020, 07/11/2020 Influenza Vaccine (#1) 2024 , 02/04/2015, 01/16/2012, Additional history exists Diabetes: Hemoglobin A1C 02/25/2025 025, 11/25/2023, 05/25/2023, Additional history exists SDOH Screening 08/24/2025 08/24/2024 Diabetes: Foot Exam 08/31/2025 08/31/2024, Lipid Panel 09/21/2025 09/21/2024, 05/0 05/2022, 06/09/2021 Tobacco Screening 09/21/2025 09/21/2024 Eye Exam 08/22/2026 08/22/2024, 05/2 09/2024, 08/22/2024, Additional history exists DTaP/Tdap/Td Vaccines (3 - Td or Tdap) 10/28/2034 10/28/2024, 04/25/2012, 02/20/2007, Additional history exists Pneumococcal Vaccine: 50+ Years Completed 08/24/2017, 01/01/2015, 01/16/2012, Additional history exists Colonoscopy Discontinued 12/14/2017 Colorectal Cancer Screening Discontinued CT Colonography Discontinued FIT DNA/Cologuard Discontinued FIT Discontinued FOBT Discontinued HIB Vaccines Aged Out No longer eligi ble based on patient's age to complete this topic HPV Vaccines Aged Out No longer eligi ble based on patient's age to complete this topic Hepatitis A Vaccines Aged Out No long er eligible based on patient's age to complete this topic Hepatitis B Vaccines Aged Out No long er eligible based on patient's age to complete this topic IPV Vaccines Aged Out No longer eligi ble based on patient's age to complete this topic Meningococcal B Vaccine Aged Out No l onger eligible based on patient's age to complete this topic Meningococcal Vaccine Aged Out No courtney juan eligible based on patient's age to complete this topic RSV under 20 months Aged Out No longe r eligible based on patient's age to complete this topic Rotavirus Vaccines Aged Out No longer eligible based on patient's age to complete this topic Sigmoidoscopy Discontinued Procedures Procedure Name Priority Date/Time Associated Diagnosis Comments BASIC METABOLIC PANEL Routine 11/09/2024 10:29 AM EDT Elevated serum creatinine SED RATE BY MODIFIED WESTERGREN Routine 09/21/2024 11:57 AM EDT Weight loss CBC WITH AUTO DIFFERENTIAL Routine 09/21/2024 11:57 AM EDT Weight loss TSH W/REFLEX TO FT4 Routine 09/21/2024 1 1:57 AM EDT Weight loss LIPID PANEL, STANDARD Routine 09/21/2024 11:57 AM EDT Mixed hyperlipidemia COMPREHENSIVE METABOLIC PANEL Routine 09/21/2024 11:57 AM EDT Type 2 diabetes mellitus without complication, without long-term current use of insulin ([facility]) XR RIBS 3 VIEWS BILATERAL WITH CHEST POSTEROANTERIOR Routine 09/21/2024 10:58 AM EDT XR CHEST 2 VIEWS Routine 09/21/2024 10:5 5 AM EDT Cigarette smoker Moderate persistent asthma without complication POCT GLUCOSE Routine 09/21/2024 10:14 AM EDT Type 2 diabetes mellitus without complication, without long-term current use of insulin ([facility]) POCT GLYCATED HEMOGLOBIN, TOTAL Routine 08/25/2024 3:07 PM EDT Type 2 diabetes mellitus without complication, without long-term current use of insulin ([facility]) ALBUMIN, RANDOM URINE W/CREATININE Routine 06/09/2021 10:49 AM EDT HM COLONOSCOPY Routine 12/14/2017 from Last 3 Months or Most Recently Relevant to Health Maintenance Results * (ABNORMAL) Basic Metabolic Panel (11/09/2024 10:29 AM EDT) Sodium 141 135 - 145 mmol/L [facility] Potassium 4.4 3.3 - 5.1 mmol/L [facility] Chloride 105 96 - 108 mmol/L [facility] Carbon Dioxide 28 22 - 29 mmol/L [facility] Anion Gap 12 12 - 20 [facility] Urea Nitrogen (BUN) 20(H) 9 - 16 mg/dL [facility] Creatinine, Serum 1.25 0.5 - 1.4 mg/dL [facility] Estimated Glomerular Filt Rate 42 [facility] Comment:Chronic Kidney Disea se: Estimated GFR < 60 mL/min/1.00y2Igmlqk Kidney Disease: Estimated GFR < 15 mL/min/1.73m2 Glucose 106 60 - 115 mg/dL [facility] Calcium 8.7 8.4 - 10.2 mg/dL [facility] Blood Venous blood specimen / Unknown 11/09/2024 10:29 AM EDT 11/09/2024 11:20 AM EDT Samson Reese MD LAB BLOOD ORDERABLES Final Result Performing Organization Address [facility]/ZIP Co de Phone Number [facility] [address] [place] [phone] * TSH with Reflex to Free T4 (09/21/2024 11:57 AM EDT) Pathologist [facility] TSH reflex Free T4 0.37 0.32 - 4.0 uIU/mL [facility] Blood Venous blood specimen / Unknown 09/21/2024 11:57 AM EDT 09/21/2024 1:17 PM EDT Samson Reese MD LAB BLOOD ORDERABLES Final Result Performing Organization Address [facility] Co de Phone Number [facility] [address] [place] [phone] * (ABNORMAL) CBC auto differential (09/21/2024 11:57 AM EDT) [facility] White Blood Count 9.3 4.8 - 10.8 X10*3/uL [facility] Red Blood Count 3.65(L) 4.20 - 5.50 X10*6/uL [facility] Hemoglobin 11.6(L) 12.0 - 16.0 g/dl [facility] Hematocrit 34.6(L) 37.0 - 47.0 % [facility] Mean Corpuscular Volume 94.8 80.0 - 98.0 fL [facility] Mean Corpuscular Hemoglobin 31.8 27.0 - 33.0 pg [facility] Mean Corpuscular HGB Conc 33.5 31.0 - 35.0 g/dl [facility] Red Cell Distribution Width 14.9 11.0 - 16.0 % [facility] Platelet Count 250 160 - 400 X10*3/uL [facility] Mean Platelet Volume 11.3 9.4 - 12.3 fL [facility] Neutrophils Percent Auto 62.2 45 - 73 % [facility] Imm Gran Pct Auto 0.2 0.0 - 0.4 % [facility] Lymphocytes Percent Auto 31.0 20 - 40 % [facility] Monocytes Percent Auto 4.7 2 - 11 % [facility] Eosinophils Percent Auto 1.3 0 - 4 % [facility] Basophils Percent Auto 0.6 0 - 2 % [facility] NRBC Pct Auto 0.0 0.0 - 0.2 /100WBC [facility] Neutrophils Absolute Auto 5.8 2.0 - 8.3 x10*3/uL [facility] Imm Gran Abs Auto 0.02 0.00 - 0.03 X10*3/uL [facility] Lymphocytes Absolute Auto 2.9 1.2 - 4.9 X10*3/uL [facility] Monocytes Absolute Auto 0.4 0.1 - 1.2 X10*3/uL [facility] Eosinophils Absolute Auto 0.1 0.0 - 0.4 X10*3/uL [facility] Basophils Absolute Auto 0.1 0.0 - 0.2 X10*3/uL [facility] NRBC Abs Auto 0.000 0.0 - 0.012 X10*3/uL [facility] Blood Venous blood specimen / Unknown 09/21/2024 11:57 AM EDT 09/21/2024 1:17 PM EDT us Samson Reese MD LAB BLOOD ORDERABLES Final Result [facility] [address] [place], [place] [phone] * Sed Rate by Modified Edouard (09/21/2024 11:57 AM EDT) Erythrocyte Sedimentation Rate 13 0 - 20 MM/HR [facility] Comment:Patients with polycy themia and many hemoglobin abnormalitiesmay have depressed sed rates whereas patients with anemiamay have elevated sed rates. Blood Venous blood specimen / Unknown 09/21/2024 11:57 AM EDT 09/21/2024 1:16 PM EDT Samson Reese MD LAB BLOOD ORDERABLES Final Result Performing Organization Address [facility]/ZIP Co de Phone Number [facility] [address] [place] [phone] * (ABNORMAL) Lipid Panel, Standard (09/21/2024 11:57 AM EDT) Triglycerides 101 <150 mg/dL [facility] Comment:Desirable Triglyceri de: less than 150 mg/dLBorderline High Triglyceride 150-199 mg/dLHigh Triglyceride: 200-499 mg/dLVery High Triglyceride: greater than or equal to 5OO mg/dL Cholesterol 77 <200 mg/dL [facility] Comment:Desirable Cholestero l: less than 200 mg/dLBorderline High Cholesterol: 200-239 mg/dLHigh Cholesterol: greater than 239 mg/dL LDL Cholesterol Calculated 26 <100 mg/dL [facility] Comment:Desirable LDL: less than 100 mg/dLNear Optimal/Above Optimal LDL: 110- 129 mg/dLBorderline High LDL: 130-159 mg/dLHigh LDL: 160-189 mg/dLVery High LDL: greater than or equal to 190 mg/dL HDL Cholesterol 31(L) >40 mg/dL [facility] Comment:Desirable HDL: great er than 40 mg/dL Note: This HDL assay may give artificially low results in patients with liver disease. Blood Venous blood specimen / Unknown 09/21/2024 11:57 AM EDT 09/21/2024 1:17 PM EDT Samson Reese MD LAB BLOOD ORDERABLES Final Result Performing Organization Address City/[facility]/ZIP Co de Phone Number [facility] [address] [place] [address] [phone] * (ABNORMAL) Comprehensive Metabolic Panel (09/21/2024 11:57 AM EDT) Sodium 140 135 - 145 mmol/L [facility] Potassium 3.8 3.3 - 5.1 mmol/L [facility] Chloride 103 96 - 108 mmol/L [facility] Carbon Dioxide 30(H) 22 - 29 mmol/L [facility] Anion Gap 11(L) 12 - 20 [facility] Urea Nitrogen (BUN) 26(H) 9 - 16 mg/dL [facility] Creatinine, Serum 1.71(H) 0.5 - 1.4 mg/dL [facility] Estimated Glomerular Filt Rate 29 [facility] Comment:Chronic Kidney Disea se: Estimated GFR < 60 mL/min/1.24k3Ycwkkz Kidney Disease: Estimated GFR < 15 mL/min/1.73m2 Glucose 108 60 - 115 mg/dL [facility] Calcium 13.0(HH) 8.4 - 10.2 mg/dL [facility] Comment:Critical value for C ALS: Results called to and read santhosh: Kelsey Gaines Person calling: SHREYA Date: 09/21/24 Time:1407Test was verified by repeat analysis. Bilirubin, Total 0.4 0.0 - 1.0 mg/dL [facility] Aspartate Amino Transferase 26 5 - 31 U/L [facility] Alanine Aminotransferase 23 0 - 31 U/L [facility] Total Protein 6.9 6.5 - 8.0 g/dL [facility] Albumin Level 4.4 3.5 - 5.0 g/dL [facility] Alkaline Phosphatase 232(H) 39 - 117 U/L [facility] Blood Venous blood specimen / Unknown 09/21/2024 11:57 AM EDT 09/21/2024 1:17 PM EDT us Samson Reese MD LAB BLOOD ORDERABLES Final Result [facility] [address] [place] [phone] * XR Rib 3 Views Bilateral with Chest Posteroanterior (09/21/2024 10:58 AM EDT) Anatomical Region Laterality Modality Rib, Abdomen Bilateral Radiographic Lidia ging 09/21/2024 10:5 8 AM EDT Narrative 09/21/2024 12:23 PM EDT [address] [address] XRay Report Signed Patient: Miri Diaz MR#: [id number] 226 : 1950 Acct:[id number] Age/Sex: 74 / F ADM Date: 09/21/24 Loc: HOMALIACX Attending Dr: Samson Lorenz MD Ordering Physician: Samson Lorenz MD Date of Service: 09/21/24 Procedure(s): XR ribs BI 3V Accession Number(s): [id number] cc: Samson Lorenz MD EXAMINATION: XR RIBS, BILATERAL CLINICAL INFORMATION: rib pain, bilateral COMPARISON: None available. TECHNIQUE: AP chest and 3 view rib x-rays FINDINGS: No rib fracture, deformity, or offset is identified. XR/XR ribs BI 3V IMPRESSION: No visible rib fracture. Electronically signed by: Jace Zuniga MD 09/21/2024 12:20 PM EDT Dictated By: Jace Zuniga MD Signed By: <Electronically signed by Jace Zuniga MD in OV> 09/21/24 1220 DD/ 1058 TD/TT: 09/21/24 1100 Loan Analyst: Procedure Note Donotuseinterpreter, Image - 09/21/[address] [address] XRay Report Signed Patient: Minerva DiazR#: [id number] 226 : 1950cct:[id number] Age/Sex: 74 / FADM Date: 09/21/24 Loc: HODungHHCX Attending Dr: Samson Lorenz MD Ordering Physician: Samson Lorenz MD Date of Service: 09/21/24 Procedure(s): XR ribs BI 3V Accession Number(s): [id number] cc: Samson Lorenz MD EXAMINATION: XR RIBS, BILATERAL CLINICAL INFORMATION: rib pain, bilateral COMPARISON: None available. TECHNIQUE: AP chest and 3 view rib x-rays FINDINGS: No rib fracture, deformity, or offset is identified. XR/XR ribs BI 3V IMPRESSION: No visible rib fracture. Electronically signed by: Jace Zuniga MD 09/21/2024 12:20 PM EDT RP Dictated By: Jace Zuniga MD Signed By: <Electronically signed by Jace Zuniga MD in OV> 09/21/24 1220 DD/ 1058 TD/TT: 09/21/24 1100 Loan Analyst: us Samson Reese MD IMG XR PROCEDURES Fin al Result * XR Chest 2 Views (09/21/2024 10:55 AM EDT) Anatomical Region Laterality Modality Chest Radiographic Lidia ging 09/21/2024 10:5 5 AM EDT Narrative 09/21/2024 12:21 [place] [address] XRay Report Signed Patient: Miri Diaz MR#: [id number] 226 : 1950 Acct:[id number] Age/Sex: 74 / F ADM Date: 09/21/24 Loc: HO.HHCX Attending Dr: Samson Lorenz MD Ordering Physician: Samson Lorenz MD Date of Service: 09/21/24 Procedure(s): XR chest 2V Accession Number(s): [id number] cc: Samson Lorenz MD EXAMINATION: XR CHEST CLINICAL INFORMATION: smoker, weight loss COMPARISON: None available. TECHNIQUE: 2 views of the chest were obtained. FINDINGS: Atherosclerotic calcification is visible in the aortic knob. Heart size is within normal limits. The aorta is mildly tortuous. Lungs are mildly hyperexpanded. Lungs are clear. There is no pleural effusion. XR/XR chest 2V IMPRESSION: No acute disease. Electronically signed by: Jace Zuniga MD 09/21/2024 12:18 PM EDT RP Dictated By: Jace Zuniga MD Signed By: <Electronically signed by Jace Zuniga MD in OV> 09/21/24 1218 DD/ 1055 TD/TT: 09/21/24 1100 Loan Analyst: Procedure Note Donotuseinterpreter, Image - 09/21/2024 [place] [address] XRay Report Signed Patient: Lalo Diaz#: [id number] [birth year] : 9Acct:[id number] Age/Sex: 74 / FADM Date: 09/21/24 Loc: HO.HHCX Attending Dr: Samson Lorenz MD Ordering Physician: Samson Lorenz MD Date of Service: 09/21/24 Procedure(s): XR chest 2V Accession Number(s): [id number] cc: Samson Lorenz MD EXAMINATION: XR CHEST CLINICAL INFORMATION: smoker, weight loss COMPARISON: None available. TECHNIQUE: 2 views of the chest were obtained. FINDINGS: Atherosclerotic calcification is visible in the aortic knob. Heart size is within normal limits. The aorta is mildly tortuous. Lungs are mildly hyperexpanded. Lungs are clear. There is no pleural effusion. XR/XR chest 2V IMPRESSION: No acute disease. Electronically signed by: Jace Zuniga MD 09/21/2024 12:18 PM EDT RP Dictated By: Jace Zuniga MD Signed By: <Electronically signed by Jace Zuniga MD in OV> 09/21/24 1218 DD/ 1055 TD/TT: 09/21/24 1100 Loan Analyst: us Samson Reese MD IMG XR PROCEDURES Fin al Result * POCT Glucose (09/21/2024 10:14 AM EDT) Glucose Blood, POC 132 60 - 200 mg/dL QC Media Lot # [id number] Lot# Expiration Date 101,425 Blood Capillary blood specimen / Unknown 09/21/2024 10:14 AM EDT us Samson Reese MD POINT OF CARE TEST EN TER/EDIT ORDERABLES Final Result * POCT HGB A1C (08/25/2024 3:07 PM EDT) Hemoglobin A1C 5.7 4.0 - 6.0 % QC Media Lot # [id number] Lot# Expiration Date Blood 08/25/2024 3:07 PM EDT us Debbie Guerra NP POINT OF CARE TEST ENTER/EDIT O RDERABLES Final Result * ALBUMIN, RANDOM URINE W/CREATININE (06/09/2021 10:49 AM EDT) Microalbumin Urine 1.4 See Note: mg/dL [facility] Comment: Reference Range: Reference Range Not established Microalb/Creat Ratio 7 <30 mcg/mg creat [facility] Comment: The ADA defines abnormalities in albumin excretion as follows: Albuminuria Category Result (mcg/mg creatinine) Normal to Mildly increased <30 Moderately increased 30-299 Severely increased > OR = 300 The ADA recommends that at least two of three specimens collected within a 3-6 month period be abnormal before considering a patient to be within a diagnostic category. Creatinine, Urine 189 20 - 275 mg/dL [facility] 06/09/2021 10:4 9 AM EDT us Samson Reese MD LAB URINE ORDERABLES Final Result [facility] [address] [place] [address], * Colonoscopy (12/14/2017) Colonoscopy Normal Normal us Historical Provider HEALTH MAINTENANCE Final Result from Last 3 Months or Most Recently Relevant to Health Maintenance Insurance MARTY GUZMAN [id number] Care Teams Egg Smeller Relationship Specialty Start Date End Date Samson Stone MD [address] [place] [phone] PCP - General Internal Medicine 05/12/21
--- OUTSIDE RECORDS SUMMARY | 2024-12-08 14:57 | XMS_ITS | Encounter Summary ---
Author Organization [employer] Address [address] [place] [address] [address] [place] [address] Care Team Providers Care National Accounts Recruiter Name Role Phone Samson Stone MD Primary Care Provide r Reason for Visit * Reason Onset Date Comments Medical Protection 07/17/2022 Encounter Details Date Type Department Care Team (Late st Contact Info) Description 07/17/2022 Telephone [facility] MEDICINE [address] [place], [place] [phone] Samson Stone MD [address] [place], [place] [phone] Medical Protection Social History Tobacco Use Types Packs/Day Years [...] encounter Miscellaneous Notes * Telephone Encounter - Missy Rutledge - 07/30/2022 12:43 PM EDT Tc from pt stating they are awaiting letter from PCP so they won't shut electricity off however states they went to pt house and advised pt PCP will need to call [employer] directly to inform that letter is currently in process and can take a couple days if not lights will be shut off today. 07/30/22Please contact at [phone] Call pt at [phone] * Telephone Encounter - Kat Chambers - 07/17/2022 1:15 PM EDT Tc from pt and [facility] requesting a Medical protection service due to having shut down soon for pt electric bill. Please contact pt at [phone] Estonian Speaker documented in this encounter Plan of Treatment Upcoming Encounters Date Type Department Care Team (Late st Contact Info) Description 02/26/2025 1:00 PM EST Office Visit [facility] OPTOMETRY [address] [place], [place] [phone] Ofelia Guerrero, OD [address] [place] [phone] documented as of this encounter Visit Diagnoses Not on filedocumented in this encounter Care Teams National Accounts Recruiter Relationship Specialty Start Date End Date Samson Stone MD [address] [place] [address] PCP - General Internal Medicine 05/12/21 documented as of this encounter
--- OUTSIDE RECORDS SUMMARY | 2024-12-08 14:57 | XMS_ITS | Encounter Summary ---
Author Organization [employer] Address [address] [place] [address] [place] [address] Care Team Providers Care Certified Activities Director Name Role Phone Samson Stone MD Primary Care Provide r Encounter Details Date Type Department Care Team (Late Contact Info) Description 08/05/2022 Abstract [facility] MEDICINE [address] [place] [address] Samson Stone MD [address] [place] [address] Social History Tobacco Use Types Packs/Day Years [...] Description 02/26/2025 1:00 PM EST Office Visit [facility] OPTOMETRY [address] [place] [address] Ofelia Guerrero, OD [address] [place] [address] documented as of this encounter Visit Diagnoses Not on filedocumented in this encounter Care Teams Certified Activities Director Relationship Specialty Start Date End Date Samson Stone MD [address] [place] [address] PCP - General Internal Medicine 05/12/21 documented as of this encounter
[2024-12-08 15:56] LABS: Creatinine POC 0.9 mg/dL (0.5-1.4); GFR POC > 60
== END 2024-12-08 12:36 | disposition home or self-care (01) ==
LOC: HO.CT 12:35
PROVIDERS: PCP Internal Medicine; Visit Provider Internal Medicine
DX: K21.9 Gastro-esophageal reflux disease without esophagitis (principal); R63.4 Abnormal weight loss; J45.40 Moderate persistent asthma, uncomplicated; F17.210 Nicotine dependence, cigarettes, uncomplicated
CPT/HCPCS: 71250; 74177; 82565; Q9967

== ENCOUNTER → 2024-12-08 12:37 | Outpatient (BNV) | payer OTHER, SELFPAY | PROVIDERS: PCP Internal Medicine; Visit Provider Radiology Diagnostic Radiology | DX: K56.41 Fecal impaction (principal); J98.09 Other diseases of bronchus, not elsewhere classified | CPT/HCPCS: 71250; 74177 ==

== ENCOUNTER 2024-12-25 14:34 | Outpatient (REF) | payer OTHER, SELFPAY ==
--- NOTE | ~2024-12-25 | XR_ITS ---
EXAMINATION: XR RIBS, LEFT CLINICAL INFORMATION: rib pain COMPARISON: 09/21/2024. TECHNIQUE: PA view of the chest, and 3 views of the left ribs were obtained. FINDINGS: Lungs are clear. No consolidation, pneumothorax, or pleural effusion. The cardiomediastinal silhouette and pulmonary vasculature are normal. Aortic mural calcifications. Osseous structures are intact and unremarkable. Ribs are intact. No fractures or rib lesions are identified. Cholecystectomy clips are noted. XR/XR ribs LT min 3V w CXR1V IMPRESSION: The lungs are clear. No definite acute rib abnormality. Electronically signed by: Brayan Laboy MD 12/25/2024 03:09 PM EDT
--- OUTSIDE RECORDS SUMMARY | 2024-12-25 16:25 | XMS_ITS | Encounter Summary ---
Author Organization [email or web address] Address [address] [place] [address] [address] [place] [address] Care Team Providers Care Top Executive Name Role Phone Samson Stone MD Primary Care Provide r Reason for Visit * Reason Onset Date Comments Med Refill 10/02/2024 Encounter Details Date Type Department Care Team ([facility] st Contact Info) Description 10/02/2024 Telephone [facility] MEDICINE [address] [place], [place] [phone] Samson Stone MD [address] [place], [place] [phone] Med Refill Social History Tobacco Use Types [...] tablet To be sent to: [facility] [address] [place] [address] documented in this encounter Plan of Treatment Upcoming Encounters Date Type Department Care Team (Late st Contact Info) Description 02/26/2025 1:00 PM EST Office Visit [facility] OPTOMETRY [address] [place] [address] Ofelia Guerrero, OD [address] [place] [address] documented as of this encounter Visit Diagnoses Not on filedocumented in this encounter Additional Health Concerns Assessment Noted Time PHQ-9 Depression Total Score: 1 11/25/19 24 1:07 PM EDT documented as of this encounter Care Teams Top Executive Relationship Specialty Start Date End Date Samson Stone MD [address] [place] [address] PCP - General Internal Medicine 05/12/21 documented as of this encounter
--- OUTSIDE RECORDS SUMMARY | 2024-12-25 16:25 | XMS_ITS | Encounter Summary ---
Author Organization [employer] Address [address] [place] [address] [address] [place] [address] Care Team Providers Care Log Turner Name Role Phone Samson Stone MD Primary Care Provide r Reason for Visit * Reason Onset Date Comments Med Refill 12/19/2024 Encounter Details Date Type Department Care Team ([facility] st Contact Info) Description 12/19/2024 Refill [facility] MED & PEDS [address] [place], [place] [phone] Samson Stone MD [address] [place] [address] Social History Tobacco Use Types Packs/Day Years [...] encounter Miscellaneous Notes * Telephone Encounter - Kaitlyn Reed RN - 12/20/2024 9:29 AM EDT TC placed to the pt pharmacy [facility] to inform that the pt current prescription for alendronate (Fosamax) 70 MG should be DISCONTINUED and not filled for the near foreseeable future. [facility] stated that they placed a note in the pt chart to no longer fill this medication. TC placed to the pt but no answer and no VM available to leave a message. Tried the pt alternative contact Miri but unable to contact as well. Will postpone this for another attempt to contact the pt. Per PCP Dr. Fontana Please contact [facility] tomorrow 12/20/2024 to ensure Fosamax has been DISCONTINUED. Fosamax was queued to me and I sent a refill inadvertently. I immediately contacted [facility] and theystated they did not see the s- script but they promised to make a note that Fosamax needs to be DISCONTINUED and to NOT give patient any further prescriptions. Please call them to ensure that indeedthis is the case, and please schedule patient to see me soon either this or next week, even if its overbooked. Thank you , let me know * Telephone Encounter - Tiffanie Villa LPN - 12/19/2024 10:02 AM EDT Last seen 6.26.25 documented in this encounter Plan of Treatment Upcoming Encounters Date Type Department Care Team (Late st Contact Info) Description 02/26/2025 1:00 PM EST Office Visit [facility] OPTOMETRY [address] [place], [place] [phone] Ofelia Guerrero, OD [address] [place], [place] [phone] documented as of this encounter Visit Diagnoses Not on filedocumented in this encounter Additional Health Concerns Assessment Noted Time PHQ-9 Depression Total Score: 1 11/25/19 24 1:07 PM EDT documented as of this encounter Care Teams Log Turner Relationship Specialty Start Date End Date Samson Stone MD [address] [place], [place] [phone] PCP - General Internal Medicine 05/12/21 documented as of this encounter
--- OUTSIDE RECORDS SUMMARY | 2024-12-25 16:25 | XMS_ITS | Encounter Summary ---
Author Organization [employer] Address [address] [place] [address] 7 [place] [address] Care Team Providers Care Inspector Conveyor Line Name Role Phone Samson Stone MD Primary Care Provide r Reason for Referral * Consultation (STAT) - Authorized Specialty Diagnoses / Procedures Referred By Marcelina bradford Referred To Contact Pulmonary Disease Diagnoses Lesion of bronchus Cigarette smoker Weight loss Samson Stone MD [address] [place] [address] Phone: tel: fax: Hany Lundberg [address] [place] [id number] Phone: tel: Referral ID Status Reason Start Date Expiration Date Visits Requested Visits Authorized [id number] Authorized Specialty Services Required 12/12/2024 12/12/2025 1 1 Reason for Visit * Reason Onset Date Comments Results 10/31/2024 VNA Referral 10/31/2024 Encounter Details Date Type Department Care Team (Latest Contact Info) Description 10/31/2024 Results Follow-Up [facility] [address] [place] [address] Wendy Alvarado, MANN [address] [place] [address] POCT Glucose, Comprehensive Metabolic Panel, Lipid Panel, Standard, Additional followed-up results: 4 Social History Tobacco Use Types Packs/Day Years [...] Telephone Encounter - Wendy Alvarado RN - 12/22/2024 9:06 AM EDT Incoming call from [facility] at my direct line to inform me that pt is scheduled for Wednesday12/25/24 @3pm. They stated pt is aware and agrees to this appointment and stated has transportation and will be there. * Telephone Encounter - Wendy Alvarado RN - 12/21/2024 9:35 AM EDT Telephone call placed to [facility] once again. They reported that they tried to call us back yesterday but were on hold for 30 min and then gave up. They report that they offered pt several appointment slots but she declined all of them d/t it being too early in the day or not having transportation. She reports plan to discuss with provider possibly getting pt in for nd if provider agreeable, will contact pt and will tell her to notify [employer] for transportation. She states will call me back with update. Gave direct ext for call back. * Telephone Encounter - Kaitlyn Reed RN - 12/20/2024 9:25 AM EDT TC placed to [facility] in regards to checking on the status of faxed CT of the chest that wasdone on 12/15/2024. Per [facility] they are going to look and see if they can find the CT scan and call back RN direct extension with an update sometime today. * Telephone Encounter - Wendy Alvarado RN - 12/15/2024 2:59 PM EDT Telephone call placed to [facility]. They stated they received referral 12/12/24. Pt not scheduled yet. They will send message to nurses to review and schedule ROSEMARIE. Advised tohave them look at CT chest. She requested I fax. Faxed as requested. Will retask to check again next week. Please find out the status of the stat referral to Pulmonary Dr Hany lundberg * Telephone Encounter - Kaitlyn Reed RN - 12/12/2024 1:05 PM EDT TC placed to the pt with S bell clerk # [id number] to inform of the pt CT results below indicating a possible aspirated foreign body. The pt was given the POC which includes a STAT referral to [facility] to perform an exploratory bronchoscopy. The pt was agreeable to this information and did nothave any further questions or concerns. ----- Message from Samson Reese MD sent at 12/12/2024 1:04 PM EDT ----- Chest CT done for weight loss in a smoker showed: Hollow, ringlike structure in the left mainstem bronchus which could represent an aspirated foreign body. Plan: I have placed a stat referral to Dr Hany Lundberg Supplemental Manager for a bronchoscopy. Pleasecontact patient /respiratory care assistant to let them know ----- Message ----- From: Interface, Ris Results In Sent: 12/08/2024 3:15 PM EDT To: Samson Reese MD * Addendum Note - Samson Reese MD - 12/12/2024 1:04 PM EDTAddended by: SAMSON WATSON on: 12/12/2024 01:04 PM Modules accepted: Orders * Result Encounter Note - Samson Reese MD - 12/12/2024 1:[address] done for weight loss in a smoker showed: Hollow, ringlike structure in the left mainstem bronchus which could represent an aspirated foreign body. Plan: I have placed a stat referral to Dr Hany Lundberg Supplemental Manager for a bronchoscopy. Pleasecontact patient /respiratory care assistant to let them know * Telephone Encounter - Wendy Alvarado RN - 11/07/2024 1:00 PM EDT Per Lenora Gonzales, they tried to admit pt for VNA again and pt refused stating won't start until her next appt with PCP * Telephone Encounter - Wendy Alvarado RN - 10/31/2024 3:16 PM EDT Per S nurse liaison Lenora Gonzales, when referral was given to them, pt was hospitalized. Hospital had told pt that they were giving her VNA upon discharge but it doesn't look like they did. Referral packet regenerated and placed on PCP's desk. Pending signature. * Telephone Encounter - Wendy Alvarado RN - 10/31/2024 8:44 AM EDT Scanned [facility] discharge summary in under media DOS 09/24/24. Will discuss VNA status with S nurse liaison later today * Telephone Encounter - Wendy Alvarado RN - 10/31/2024 8:42 AM EDT ----- Message from Samson Reese MD sent at 10/30/2024 3:51 PM EDT ----- Pt was admitted to [facility] back in September 22 for hypercalcemia. I do not see the Discharge summary in [facility]. Please obtain. She also missed her f/u [...] Description 02/26/2025 1:00 PM EST Office Visit [facility] [address] [place] [address] Ofelia Guerrero, OD [address] [place] [address] Scheduled Referrals Name Type Priority Associated Diagnoses Order Schedule Referral to Pulmonology Outpatient Referral STAT Lesion of bronchus Cigarette smoker Weight loss Expected: 12/12/2024 (Approximate), Expires: 12/12/2025 documented as of this encounter Visit Diagnoses Diagnosis Lesion of bronchus- Primary Cigarette smoker Tobacco use disorder Weight loss Loss of weight documented in this encounter Additional Health Concerns Assessment Noted Time PHQ-9 Depression Total Score: 1 11/25/19 24 1:07 PM EDT documented as of this encounter Care Teams Inspector Conveyor Line Relationship Specialty Start Date End Date Samson Stone MD [address] [place] [address] PCP - General Internal Medicine 05/12/21 documented as of this encounter
--- OUTSIDE RECORDS SUMMARY | 2024-12-25 16:25 | XMS_ITS | Encounter Summary ---
Author Organization [employer] Address [address] [place] [address] [address] [place] [address] Care Team Providers Care Supervisor Dry Cell Assembly Name Role Phone Samson Stone MD Primary Care Provide r Encounter Details Date Type Department Care Team (Late st Contact Info) Description 07/17/2022 Orders Only [facility] [address] [place] [address] Taylor Bautista, MANN Social History Tobacco Use [...] Description 02/26/2025 1:00 PM EST Office Visit [facility] [address] [place] [address] Ofelia Guerrero, OD [address] [place] [address] documented as of this encounter Visit Diagnoses Not on filedocumented in this encounter Care Teams Supervisor Dry Cell Assembly Relationship Specialty Start Date End Date Samson Stone MD [address] [place] [address] PCP - General Internal Medicine 05/12/21 documented as of this encounter
--- OUTSIDE RECORDS SUMMARY | 2024-12-25 16:25 | XMS_ITS | Encounter Summary ---
Author Organization [employer] Address [address] [place] [address] [place] [address] Care Team Providers Care Feather Duster Winder Name Role Phone Samson Sotne MD Primary Care Provide r Encounter Details Date Type Department Care Team (Late Contact Info) Description 08/05/2022 Abstract [facility] [address] [place] [address] Samson Stone MD [address] [place] [address] Social History Tobacco Use Types Packs/Day Years [...] Description 02/26/2025 1:00 PM EST Office Visit [facility] [address] [place] [address] Ofelia Guerrero, OD [address] [place] [address] documented as of this encounter Visit Diagnoses Not on filedocumented in this encounter Care Teams Feather Duster Winder Relationship Specialty Start Date End Date Samson Stone MD [address] [place] [address] PCP - General Internal Medicine 05/12/21 documented as of this encounter
--- OUTSIDE RECORDS SUMMARY | 2024-12-25 16:25 | XMS_ITS | Encounter Summary ---
Author Organization [employer] Address [address] [place] [address] 7 [place] [address] Care Team Providers Care Advanced Practice Rn Name Role Phone Samson Stone MD Primary Care Provide r Reason for Visit * Reason Onset Date Comments Reschedule 08/24/2023 Encounter Details Date Type Department Care Team ([facility] st Contact Info) Description 08/24/2023 Telephone [facility] [address] [place], [place] [phone] Samson Stone MD [address] [place], [place] [phone] Reschedule Social History Tobacco Use Types Packs/Day [...] PM EST Office Visit [facility] [address] [place] [address] Tarka, Ofelia, OD [address] [place] [address] documented as of this encounter Visit Diagnoses Not on filedocumented in this encounter Additional Health Concerns Assessment Noted Time PHQ-9 Depression Total Score: 0 11/27/19 23 1:06 PM EDT documented as of this encounter Care Teams Advanced Practice Rn Relationship Specialty Start Date End Date Samson Stone MD [address] [place] [address] PCP - General Internal Medicine 05/12/21 documented as of this encounter
--- OUTSIDE RECORDS SUMMARY | 2024-12-25 16:25 | XMS_ITS | Clinical Summary ---
Author Organization [facility] Address [address] [place] [address] 7[address] [place] [address] Care Team Providers Care Dip Guider Stoves Name Role Phone Samson Stone MD Primary [...] BY MOUTH TWICE A DAY 60 each 024 Active metoprolol succinate XL (Toprol-XL) 50 MG 24 hr tabletIndications :Primary hypertension TAKE 1 TABLET BY MOUTH EVERY DAY 30 tablet 5 025 Active levothyroxine (Synthroid) 88 MCG tabletIndications :Acquired hypothyroidism TAKE 1 TABLET BY MOUTH BEFORE BREAKFAST 30 tablet 5 025 Active lansoprazole (Prevacid) [address] capsule TAKE 1 CAPSULE BY MOUTH BEFORE BREAKFAST 30 capsule 5 025 Active lidocaine (Lidoderm) 5 % patchIndications: Right-sided chest wall pain Apply 1 patch topically Once per day. Remove & discard patch within 12 hours or as directed by MD. 30 patch 1 025 Active atorvastatin (Lipitor) 80 MG tablet TAKE [...] eorder (will not trigger notification to Pharmacy)) alendronate (Fosamax) 70 MG tablet TAKE 1 TABLET BY MOUTH ONCE A WEEK. TAKE IN THE MORNING WITH A FULL GLASS OF WATER ON AN EMPTY STOMACH AND DO NOT TAKE ANYTHING ELSE BY MOUTH OR LIE DOWN FOR THE NEXT 30 MINUTES. 4 tablet 5 025 2024 Discontinued(R eorder (will not trigger notification to Pharmacy)) alendronate (Fosamax) 70 MG tablet TAKE 1 TABLET BY MOUTH ONCE A WEEK. TAKE IN THE MORNING WITH A FULL GLASS OF WATER ON AN EMPTY STOMACH AND DO NOT TAKE ANYTHING ELSE BY MOUTH OR LIE DOWN FOR THE NEXT 30 MINUTES. 4 tablet 5 025 2024 Discontinued(T herapy completed) Active Problems Problem Noted Date Diagnosed Date [...] to GI, appointment scheduled for 12/21/2023 at [facility], Patient missed appointment. Last visit I [...] to GI, appointment scheduled for 12/21/2023 at [facility] Will order an abdominal US Follow [...] dose Chest CT.we received a message from [employer] radiology pt was unable to be scheduled . Pt was then referred to Thoracic surgeon at [facility] for the Low dose CT appointment scheduled for 12/11/2022. It appears pt missed appointment. Patient was seen at [facility] 05/13/2024 after she had been c/o sob as part of her work up she had a CT of Chest 05/13/2024 that showed: No acute abnormality. Assessment & Plan (05/25/2023 1:56 PM EST): Pt with over 50 yr smoking 1/2 to 1 ppd ( >30 pack years on average ) Previous visi I ordered PFTs and Low dose Chest CT.we received a message from [employer] pt was unable to be schedule . Pt was then referred to Thoracic surgeon at [facility] for the Low dose CT appointment scheduled for 12/11/2022. It appears pt missed appointment Assessment & Plan (11/26/2022 1:20 PM EDT): Pt with over 50 yr smoking 1/2 to 1 ppd ( >30 pack years on average ) Previous visi I ordered PFTs. Order pending and Low dose Chest CT.we received a message from [employer] pt was unable to be schedule . Pt was then referred to Thoracic surgeon at [facility] for the Low dose CT appointment scheduled for 12/11/2022 Assessment & Plan (09/15/2022 11:49 AM EDT): Pt with over 50 yr smoking 1/2 to 1 ppd ( >30 pack years on average ) Previous visi I ordered PFTs and Low dose Chest CT.we received a message from [employer] pt was unable to be schedule . Will refer to Thoracic surgeon at [facility] for the Low dose CT and will [...] about weight loss. GERD (gastroesophageal reflux disease) 10/06/201 5 Assessment & Plan (09/21/2024 3:43 PM EDT): Pt with c/o GERD, uses Lansoprazole , not improving despite the use of PPI. Patient referred to Gastroenterology for evaluation, given her Hx of smoking, she also has a Hx of PUD per her report. Appointment was scheduled at [facility] 12/21/2023 Pt reminded of appointment last [...] PUD per her report. Appointment scheduled at [facility] 12/21/2023 Pt reminded of appointment today. [...] Encounters Date Type Department Care Team Description 12/19/2024 Orders Only [facility] [address] [place] [address] Samson Stone MD 12/19/2024 Refill C [facility] [address] [place], [place] [address] Samson Stone MD 11/28/2024 Refill [facility] [address], [place] [address] Samson Stone MD IFG (impaired fasting glucose) 11/23/2024 Telephone [facility] MEDICINE [address], [place] [address] Samson Stone MD Appointment Request 11/23/2024 Telephone [facility] MED[facility] [address], [place] [address] Samson Stone MD Appointment Request 11/22/2024 Telephone [facility] [address], [place] [address] Samson Stone MD Chart Prep 11/20/2024 Refill [facility] [address] [place], [place] [address] Samson Stone MD 10/31/2024 Orders Only [facility] [address], [place] [address] Samson Stone MD 10/31/2024 Refill [facility] [address], [place] [address] Samson Stone MD IFG (impaired fasting glucose); Elevated serum creatinine 10/31/2024 Results Follow-Up [facility] [address], [place] [address] Wendy Alvarado, RN POCT Glucose, Comprehensive Metabolic Panel, Lipid Panel, Standard, Additional followed-up results: 4 10/24/2024 Telephone [facility] [address], [place] [address] Samson Stone MD 10/23/2024 Telephone [facility]INE [address], [place] [address] Samson Stone MD Chart Prep 10/02/2024 Telephone [facility] [address] [place] [address] Samson Stone MD Med Refill 09/26/2024 Refill [facility] [address] [place] [address] Samson Stone MD IFG (impaired fasting glucose) from Last 3 Months Immunizations Immunization Administration [...] your housing situation today? I have nannette mendoza 08/24/[address] you li [...] 02/26/2025 1:00 PM EST Office Visit [facility] OPTOMET[facility] [address] [place] [address] Ofelia Guerrero, OD [address] [place] [address] Health Maintenance Due Date Last Done Comments Alcohol/Substance Use Screening 1960 Hepatitis C Screening 1966 Zoster Vaccines (2 of 3) 02/26/2015 01/01/2015 Diabetes: Urine Protein Screening 06/09/2022 06/09/2021 RSV Patients and Patients Aged 60 years or older (1 - 1-dose 75+ series) 09/18/2023 Depression Screening 11/24/2024 11/25/2023, 11/25/19 24 COVID-19 Vaccine (3 - season) 2024 08/01/2020, 07/11/2020 Influenza Vaccine (#1) [...] Procedure Name Priority Date/Time Associated Diagnosis Comments XR RIBS 3 VIEWS LEFT W CHEST Routine 12/25/2024 2:58 PM EDT POCT CREATININE GFR Routine 12/08/2024 2 :[address] ABDOMEN PELVIS W CONTRAST Routine 12/08/2024 2:27 PM EDT Weight loss Gastroesophageal reflux disease without esophagitis Cigarette smoker CT CHEST WO CONTRAST Routine 12/08/2024 2:27 PM EDT Weight loss Cigarette smoker Moderate persistent asthma without complication BASIC METABOLIC PANEL Routine 11/09/2024 10:29 AM EDT Elevated serum creatinine LIPID PANEL, STANDARD Routine 09/21/2024 11:57 AM EDT Mixed hyperlipidemia POCT GLYCATED HEMOGLOBIN, TOTAL Routine 08/25/2024 3:07 PM EDT Type 2 diabetes mellitus without complication, without long-term current use of insulin ([facility]) ALBUMIN, RANDOM URINE W/CREATININE Routine 06/09/2021 10:49 AM EDT HM COLONOSCOPY Routine 12/14/2017 from Last 3 Months or Most Recently Relevant to Health Maintenance Results * XR Ribs 3 Views Left w/ Chest (12/25/2024 2:58 PM EDT) Anatomical Region Laterality Modality Radiographic Lidia ging 12/25/2024 2:58 PM EDT Narrative 12/25/2024 3:12 PM EDT [address] [address] XRay Report Signed Patient: Miri Diaz MR#: [id number] 226 : 1950 Acct:[id number] Age/Sex: 74 / F ADM Date: 12/25/24 Loc: HO.LAB Attending Dr: Samson Lorenz MD Ordering Physician: Samson Lorenz MD Date of Service: 12/25/24 Procedure(s): XR ribs LT min 3V w CXR1V Accession Number(s): [id number] cc: Samson Lorenz MD Reason for Exam: rib pain EXAMINATION: XR RIBS, LEFT CLINICAL INFORMATION: rib pain COMPARISON: 09/21/2024. TECHNIQUE: PA view of the chest, and 3 views of the left ribs were obtained. FINDINGS: Lungs are clear. No consolidation, pneumothorax, or pleural effusion. The cardiomediastinal silhouette and pulmonary vasculature are normal. Aortic mural calcifications. Osseous structures are intact and unremarkable. Ribs are intact. No fractures or rib lesions are identified. Cholecystectomy clips are noted. XR/XR ribs LT min 3V w CXR1V IMPRESSION: The lungs are clear. No definite acute rib abnormality. Electronically signed by: Brayan Laboy MD 12/25/2024 03:09 PM EDT Dictated By: Brayan Laboy MD Signed By: <Electronically signed by Brayan Laboy MD in OV> 12/25/24 1509 DD/ 1458 TD/TT: 12/25/24 [address]: Procedure Note Donotuseinterpreter, Image - 12/25/[address] [address] XRay Report Signed Patient: Lalo Diaz#: [id number] 226 : 1950cct:[id number] Age/Sex: 74 / FADM Date: 12/25/24 Loc: HO.LAB Attending Dr: Samson Lorenz MD Ordering Physician: Samson Lorenz MD Date of Service: 12/25/24 Procedure(s): XR ribs LT min 3V w CXR1V Accession Number(s): [id number] cc: Samson Lorenz MD Reason for Exam: rib pain EXAMINATION: XR RIBS, LEFT CLINICAL INFORMATION: rib pain COMPARISON: 09/21/2024. TECHNIQUE: PA view of the chest, and 3 views of the left ribs were obtained. FINDINGS: Lungs are clear. No consolidation, pneumothorax, or pleural effusion. The cardiomediastinal silhouette and pulmonary vasculature are normal. Aortic mural calcifications. Osseous structures are intact and unremarkable. Ribs are intact. No fractures or rib lesions are identified. Cholecystectomy clips are noted. XR/XR ribs LT min 3V w CXR1V IMPRESSION: The lungs are clear. No definite acute rib abnormality. Electronically signed by: Brayan Laboy MD 12/25/2024 03:09 PM EDT Dictated By: Brayan Laboy MD Signed By: <Electronically signed by Brayan Laboy MD in OV> 12/25/24 1509 DD/ 1458 TD/TT: 12/25/24 [address]: Samson Reese MD IMG XR PROCEDURES Fin al Result * POCT Creatinine GFR (12/08/2024 2:28 PM EDT) POCT Creatinine 0.9 0.5 - 1.4 mg/dL [facility] GFR POC >60 [facility] Comment:Chronic Kidney Disea se: Estimated GFR < 60 mL/min/1.39l9Hkmopz Kidney Disease: Estimated GFR < 15 mL/min/1.73m2 12/08/2024 2:28 PM EDT 12/08/2024 3:55 PM EDT Narrative [facility] - 12/08/2024 3:56 PM EDT [id number] Samson Reese MD LAB POINT OF CARE TEST DOCKED DEVICE ORDERABLES Final Result [facility] [address] [place] [phone] * CT Abdomen Pelvis w/ Contrast (12/08/2024 2:27 PM EDT) Anatomical Region Laterality Modality Body, Pelvis, Abdomen Computed T omography 12/08/2024 2:27 PM EDT Narrative 12/08/2024 3:15 PM EDT [address] [address] [address] Scan Report Signed Patient: Miri Diaz MR#: [id number] 226 : 1950 Acct:[id number] Age/Sex: 74 / F ADM Date: 12/08/24 Loc: HO.CT Attending Dr: Samson Lorenz MD Ordering Physician: Samson Lorenz MD Date of Service: 12/08/24 Procedure(s): CT abdomen pelvis w IV con Accession Number(s): [id number] cc: Samson Lorenz MD Report Number: [id number]: Total DLP = 0.00 mGy-cm Reason for Exam: > 20 lbs unintentional weight loss, rule out pancreatic malignancy EXAMINATION: CT CHEST WITHOUT IV CONTRAST, CT ABDOMEN PELVIS WITH IV CONTRAST INDICATION: heavy smoker with > 20 lbs weight loss, needs to rule out lung malignancy COMPARISON: There are no prior studies available for comparison.. TECHNIQUE: CT scan of the chest, abdomen and pelvis was performed following administration of 85 mL Omnipaque 350 using standard departmental protocol. The chest was scanned prior to the administration of intravenous contrast. Coronal and sagittal reformatted images were generated and reviewed. The patient received oral contrast material. This CT exam was performed with one or more of the following dose reduction techniques: automated exposure control, adjustment of the mA and/or kV according to patient size, use of iterative reconstruction technique. DLP: 248 mGy-cm CHEST: THYROID: The thyroid is unremarkable. LUNGS: There is minimal subsegmental atelectasis versus scarring at the lung bases. The lungs are otherwise clear. MEDIASTINUM: There is no mediastinal lymphadenopathy. ALLIE: There is no hilar lymphadenopathy. CARDIOVASCULATURE: The heart is normal in size. There is no pericardial effusion. The thoracic aorta is normal in caliber. DEGREE OF CORONARY CALCIFICATION: severe PLEURA: There is no pleural effusion. No pneumothorax. MAIN AIRWAYS: The mainstem bronchi and proximal branches are patent. There is a hollow ring shaped structure in the left mainstem bronchus (series 4, images 65-68; series 6, images 41-44; and series 7 image 43) this may represent an aspirated foreign body. AXILLA: There is no axillary lymphadenopathy. SOFT TISSUES: Unremarkable. BONES: The bones are diffusely osteopenic. There are multiple old right rib fractures. ABDOMEN: LIVER: The liver is normal in size and contour. No liver mass is identified. The hepatic and portal veins are patent. GALLBLADDER / BILE DUCTS: The gallbladder is surgically absent. There is no intra or extrahepatic biliary ductal dilatation. SPLEEN: The spleen is normal in size. No focal splenic lesion is identified. PANCREAS: The pancreas is unremarkable in appearance. ADRENAL GLANDS: Within normal limits. KIDNEYS/RETROPERITONEUM: No renal calculi are identified. There is no hydronephrosis. No renal masses are identified. LYMPH NODES: No abdominal or pelvic lymphadenopathy. VASCULATURE: The abdominal aorta demonstrates atherosclerotic calcification, but is normal in caliber. MESENTERY/PERITONEUM: No free fluid. No masses. There is no free intraperitoneal gas. STOMACH: The stomach is unremarkable. SMALL BOWEL: The small bowel is normal in caliber. COLON: There is a very large amount of stool throughout the colon. APPENDIX: The appendix is not seen, however no inflammatory changes are seen adjacent to the cecum. URINARY BLADDER/PELVIC ORGANS: The urinary bladder is collapsed, limiting detailed evaluation. The patient is status post hysterectomy. BONES / SOFT TISSUES: The bones are diffusely osteopenic. CT/CT abdomen pelvis w IV con IMPRESSION: 1. Diffuse osteopenia of all of the visualized osseous structures. The possibility of multiple myeloma is raised. Laboratory evaluation is suggested. 2. Hollow, ringlike structure in the left mainstem bronchus which could represent an aspirated foreign body. 3. Very large amount of stool throughout the colon. Electronically signed by: Apolinar Pagan MD 12/08/2024 03:11 PM EDT Dictated By: Apolinar Pagan MD Signed By: <Electronically signed by Apolinar Pagan MD in OV> 12/08/24 1511 DD/ 1427 TD/TT: 12/08/24 [address]: Procedure Note Donotuseinterpreter, Image - 12/08/[address] [place] [address] [address] Scan Report Signed Patient: Lalo Diaz#: [id number] 226 : 9Acct:[id number] Age/Sex: 74 / FADM Date: 12/08/24 Loc: HO.CT Attending Dr: Samson Lorenz MD Ordering Physician: Samson Lorenz MD Date of Service: 12/08/24 Procedure(s): CT abdomen pelvis w IV con Accession Number(s): [id number] cc: Samson Lorenz MD Report Number: [id number]: Total DLP = 0.00 mGy-cm Reason for Exam: > 20 lbs unintentional weight loss, rule out pancreaticmalignancy EXAMINATION: CT CHEST WITHOUT IV CONTRAST, CT ABDOMEN PELVIS WITH IV CONTRAST INDICATION: heavy smoker with > 20 lbs weight loss, needs to rule out lung malignancy COMPARISON: There are no prior studies available for comparison.. TECHNIQUE: CT scan of the chest, abdomen and pelvis was performed following administration of 85 mL Omnipaque 350 using standard departmental protocol. The chest was scanned prior to the administration of intravenous contrast. Coronal and sagittal reformatted images were generated and reviewed. The patient received oral contrast material. This CT exam was performed with one or more of the following dose reduction techniques: automated exposure control, adjustment of the mA and/or kV according to patient size, use of iterative reconstruction technique. DLP: 248 mGy-cm CHEST: THYROID: The thyroid is unremarkable. LUNGS: There is minimal subsegmental atelectasis versus scarring at the lung bases. The lungs are otherwise clear. MEDIASTINUM: There is no mediastinal lymphadenopathy. ALLIE: There is no hilar lymphadenopathy. CARDIOVASCULATURE: The heart is normal in size. There is no pericardial effusion. The thoracic aorta is normal in caliber. DEGREE OF CORONARY CALCIFICATION: severe PLEURA: There is no pleural effusion. No pneumothorax. MAIN AIRWAYS: The mainstem bronchi and proximal branches are patent. There is a hollow ring shaped structure in the left mainstem bronchus (series 4, images 65-68; series 6, images 41-44; and series 7 image 43) this may represent an aspirated foreign body. AXILLA: There is no axillary lymphadenopathy. SOFT TISSUES: Unremarkable. BONES: The bones are diffusely osteopenic. There are multiple old right rib fractures. ABDOMEN: LIVER: The liver is normal in size and contour. No liver mass is identified. The hepatic and portal veins are patent. GALLBLADDER / BILE DUCTS: The gallbladder is surgically absent. There is no intra or extrahepatic biliary ductal dilatation. SPLEEN: The spleen is normal in size. No focal splenic lesion is identified. PANCREAS: The pancreas is unremarkable in appearance. ADRENAL GLANDS: Within normal limits. KIDNEYS/RETROPERITONEUM: No renal calculi are identified. There is no hydronephrosis. No renal masses are identified. LYMPH NODES: No abdominal or pelvic lymphadenopathy. VASCULATURE: The abdominal aorta demonstrates atherosclerotic calcification, but is normal in caliber. MESENTERY/PERITONEUM: No free fluid. No masses. There is no free intraperitoneal gas. STOMACH: The stomach is unremarkable. SMALL BOWEL: The small bowel is normal in caliber. COLON: There is a very large amount of stool throughout the colon. APPENDIX: The appendix is not seen, however no inflammatory changes are seen adjacent to the cecum. URINARY BLADDER/PELVIC ORGANS: The urinary bladder is collapsed, limiting detailed evaluation. The patient is status post hysterectomy. BONES / SOFT TISSUES: The bones are diffusely osteopenic. CT/CT abdomen pelvis w IV con IMPRESSION: 1. Diffuse osteopenia of all of the visualized osseous structures. The possibility of multiple myeloma is raised. Laboratory evaluation is suggested. 2. Hollow, ringlike structure in the left mainstem bronchus which could represent an aspirated foreign body. 3. Very large amount of stool throughout the colon. Electronically signed by: Apolinar Pagan MD 12/08/2024 03:11 PM EDT Dictated By: Apolinar Pagan MD Signed By: <Electronically signed by Apolinar Pagan MD in OV> 12/08/24 1511 DD/ 1427 TD/TT: 12/08/24 14[address] [place]eman: us Samson Reese MD IMG CT PROCEDURES Fin al Result * CT Chest w/o Contrast (12/08/2024 2:27 PM EDT) Anatomical Region Laterality Modality Body, Chest Computed Tomogra phy 12/08/2024 2:27 PM EDT Narrative 12/08/2024 3:15 PM EDT [place] [address] [address] Scan Report Signed Patient: Miri Diaz MR#: [id number] 226 : 1950 Acct:[id number] Age/Sex: 74 / F ADM Date: 12/08/24 Loc: HO.CT Attending Dr: Samson Lorenz MD Ordering Physician: Samson Lorenz MD Date of Service: 12/08/24 Procedure(s): CT chest wo IV con Accession Number(s): [id number] cc: Samson Lorenz MD Report Number: [id number]: Total DLP = 248.00 mGy-cm Reason for Exam: heavy smoker with > 20 lbs weight loss, needs to rule out lung malignancy EXAMINATION: CT CHEST WITHOUT IV CONTRAST, CT ABDOMEN PELVIS WITH IV CONTRAST INDICATION: heavy smoker with > 20 lbs weight loss, needs to rule out lung malignancy COMPARISON: There are no prior studies available for comparison.. TECHNIQUE: CT scan of the chest, abdomen and pelvis was performed following administration of 85 mL Omnipaque 350 using standard departmental protocol. The chest was scanned prior to the administration of intravenous contrast. Coronal and sagittal reformatted images were generated and reviewed. The patient received oral contrast material. This CT exam was performed with one or more of the following dose reduction techniques: automated exposure control, adjustment of the mA and/or kV according to patient size, use of iterative reconstruction technique. DLP: 248 mGy-cm CHEST: THYROID: The thyroid is unremarkable. LUNGS: There is minimal subsegmental atelectasis versus scarring at the lung bases. The lungs are otherwise clear. MEDIASTINUM: There is no mediastinal lymphadenopathy. ALLIE: There is no hilar lymphadenopathy. CARDIOVASCULATURE: The heart is normal in size. There is no pericardial effusion. The thoracic aorta is normal in caliber. DEGREE OF CORONARY CALCIFICATION: severe PLEURA: There is no pleural effusion. No pneumothorax. MAIN AIRWAYS: The mainstem bronchi and proximal branches are patent. There is a hollow ring shaped structure in the left mainstem bronchus (series 4, images 65-68; series 6, images 41-44; and series 7 image 43) this may represent an aspirated foreign body. AXILLA: There is no axillary lymphadenopathy. SOFT TISSUES: Unremarkable. BONES: The bones are diffusely osteopenic. There are multiple old right rib fractures. ABDOMEN: LIVER: The liver is normal in size and contour. No liver mass is identified. The hepatic and portal veins are patent. GALLBLADDER / BILE DUCTS: The gallbladder is surgically absent. There is no intra or extrahepatic biliary ductal dilatation. SPLEEN: The spleen is normal in size. No focal splenic lesion is identified. PANCREAS: The pancreas is unremarkable in appearance. ADRENAL GLANDS: Within normal limits. KIDNEYS/RETROPERITONEUM: No renal calculi are identified. There is no hydronephrosis. No renal masses are identified. LYMPH NODES: No abdominal or pelvic lymphadenopathy. VASCULATURE: The abdominal aorta demonstrates atherosclerotic calcification, but is normal in caliber. MESENTERY/PERITONEUM: No free fluid. No masses. There is no free intraperitoneal gas. STOMACH: The stomach is unremarkable. SMALL BOWEL: The small bowel is normal in caliber. COLON: There is a very large amount of stool throughout the colon. APPENDIX: The appendix is not seen, however no inflammatory changes are seen adjacent to the cecum. URINARY BLADDER/PELVIC ORGANS: The urinary bladder is collapsed, limiting detailed evaluation. The patient is status post hysterectomy. BONES / SOFT TISSUES: The bones are diffusely osteopenic. CT/CT chest wo IV con IMPRESSION: 1. Diffuse osteopenia of all of the visualized osseous structures. The possibility of multiple myeloma is raised. Laboratory evaluation is suggested. 2. Hollow, ringlike structure in the left mainstem bronchus which could represent an aspirated foreign body. 3. Very large amount of stool throughout the colon. Electronically signed by: Apolinar Pagan MD 12/08/2024 03:11 PM EDT RP Dictated By: Apolinar Pagan MD Signed By: <Electronically signed by Apolinar Pagan MD in OV> 12/08/24 1511 DD/ 1427 TD/TT: 12/08/24 1454 [address] [place]eman: Procedure Note Donotuseinterpreter, Image - 12/08/[address] [address] [address] Scan Report Signed Patient: Lalo Diaz#: [id number] 226 : 9Acct:[id number] Age/Sex: 74 / FADM Date: 12/08/24 Loc: HO.CT Attending Dr: Samson Lorenz MD Ordering Physician: Samson Lorenz MD Date of Service: 12/08/24 Procedure(s): CT chest wo IV con Accession Number(s): [id number] cc: Samson Lorenz MD Report Number: [id number]: Total DLP = 248.00 mGy-cm Reason for Exam: heavy smoker with > 20 lbs weight loss, needs to rule outlung malignancy EXAMINATION: CT CHEST WITHOUT IV CONTRAST, CT ABDOMEN PELVIS WITH IV CONTRAST INDICATION: heavy smoker with > 20 lbs weight loss, needs to rule out lung malignancy COMPARISON: There are no prior studies available for comparison.. TECHNIQUE: CT scan of the chest, abdomen and pelvis was performed following administration of 85 mL Omnipaque 350 using standard departmental protocol. The chest was scanned prior to the administration of intravenous contrast. Coronal and sagittal reformatted images were generated and reviewed. The patient received oral contrast material. This CT exam was performed with one or more of the following dose reduction techniques: automated exposure control, adjustment of the mA and/or kV according to patient size, use of iterative reconstruction technique. DLP: 248 mGy-cm CHEST: THYROID: The thyroid is unremarkable. LUNGS: There is minimal subsegmental atelectasis versus scarring at the lung bases. The lungs are otherwise clear. MEDIASTINUM: There is no mediastinal lymphadenopathy. ALLIE: There is no hilar lymphadenopathy. CARDIOVASCULATURE: The heart is normal in size. There is no pericardial effusion. The thoracic aorta is normal in caliber. DEGREE OF CORONARY CALCIFICATION: severe PLEURA: There is no pleural effusion. No pneumothorax. MAIN AIRWAYS: The mainstem bronchi and proximal branches are patent. There is a hollow ring shaped structure in the left mainstem bronchus (series 4, images 65-68; series 6, images 41-44; and series 7 image 43) this may represent an aspirated foreign body. AXILLA: There is no axillary lymphadenopathy. SOFT TISSUES: Unremarkable. BONES: The bones are diffusely osteopenic. There are multiple old right rib fractures. ABDOMEN: LIVER: The liver is normal in size and contour. No liver mass is identified. The hepatic and portal veins are patent. GALLBLADDER / BILE DUCTS: The gallbladder is surgically absent. There is no intra or extrahepatic biliary ductal dilatation. SPLEEN: The spleen is normal in size. No focal splenic lesion is identified. PANCREAS: The pancreas is unremarkable in appearance. ADRENAL GLANDS: Within normal limits. KIDNEYS/RETROPERITONEUM: No renal calculi are identified. There is no hydronephrosis. No renal masses are identified. LYMPH NODES: No abdominal or pelvic lymphadenopathy. VASCULATURE: The abdominal aorta demonstrates atherosclerotic calcification, but is normal in caliber. MESENTERY/PERITONEUM: No free fluid. No masses. There is no free intraperitoneal gas. STOMACH: The stomach is unremarkable. SMALL BOWEL: The small bowel is normal in caliber. COLON: There is a very large amount of stool throughout the colon. APPENDIX: The appendix is not seen, however no inflammatory changes are seen adjacent to the cecum. URINARY BLADDER/PELVIC ORGANS: The urinary bladder is collapsed, limiting detailed evaluation. The patient is status post hysterectomy. BONES / SOFT TISSUES: The bones are diffusely osteopenic. CT/CT chest wo IV con IMPRESSION: 1. Diffuse osteopenia of all of the visualized osseous structures. The possibility of multiple myeloma is raised. Laboratory evaluation is suggested. 2. Hollow, ringlike structure in the left mainstem bronchus which could represent an aspirated foreign body. 3. Very large amount of stool throughout the colon. Electronically signed by: Apolinar Pagan MD 12/08/2024 03:11 PM EDT Dictated By: Apolinar Pagan MD Signed By: <Electronically signed by Apolinar Pagan MD in OV> 12/08/24 1511 DD/ 1427 TD/TT: 12/08/24 1454 [place] Rout[place]: Samson Reese MD IMG CT PROCEDURES Fin al Result * (ABNORMAL) Basic Metabolic Panel (11/09/2024 10:29 AM EDT) Pathologist [facility] Sodium 141 135 - 145 mmol/L [facility] Potassium 4.4 3.3 - 5.1 mmol/L [facility] Chloride 105 96 - 108 mmol/L [facility] Carbon Dioxide 28 22 - 29 mmol/L [facility] Anion Gap 12 12 - 20 [facility] Urea Nitrogen (BUN) 20(H) 9 - 16 mg/dL [facility] Creatinine, Serum 1.25 0.5 - 1.4 mg/dL [facility] Estimated Glomerular Filt Rate 42 [facility] Comment:Chronic Kidney Disea se: Estimated GFR < 60 mL/min/[id number] Kidney Disease: Estimated GFR < 15 mL/min/1.73m2 Glucose 106 60 - 115 mg/dL [facility] Calcium 8.7 8.4 - 10.2 mg/dL [facility] Blood Venous blood specimen / Unknown 11/09/2024 10:29 AM EDT 11/09/2024 11:20 AM EDT Samson Reese MD LAB BLOOD ORDERABLES Final Result [facility] [address] [place] [phone] [phone] * (ABNORMAL) Lipid Panel, Standard (09/21/2024 11:57 AM EDT) Triglycerides 101 <150 mg/dL [facility] Comment:Desirable Triglyceri de: less than 150 mg/dLBorderline High Triglyceride 150-199 mg/dLHigh Triglyceride: 200-499 mg/dLVery High Triglyceride: greater than or equal to 5OO mg/dL Cholesterol 77 <200 mg/dL [facility] Comment:Desirable Cholestero l: less than 200 mg/dLBorderline High Cholesterol: 200-239 mg/dLHigh Cholesterol: greater than 239 mg/dL LDL Cholesterol Calculated 26 <100 mg/dL [facility] Comment:Desirable LDL: less than 100 mg/dLNear Optimal/Above Optimal LDL: 110- 129 mg/dLBorderline High LDL: 130-159 mg/dLHigh LDL: 160-189 mg/dLVery High LDL: greater than or equal to 190 mg/dL HDL Cholesterol 31(L) >40 mg/dL [facility] Comment:Desirable HDL: great er than 40 mg/dL Note: This HDL assay may give artificially low results in patients with liver disease. Blood Venous blood specimen / Unknown 09/21/2024 11:57 AM EDT 09/21/2024 1:17 PM EDT Samson Reese MD LAB BLOOD ORDERABLES Final Result [facility] [address] [place] [phone] * POCT HGB A1C (08/25/2024 3:07 PM EDT) Hemoglobin A1C 5.7 4.0 - 6.0 % QC Media Lot # [id number] Lot# Expiration Date Blood 08/25/2024 3:07 PM EDT Debbie Guerra NP POINT OF CARE TEST [...] LAB SYSTEM 06/09/2021 10:4 9 AM EDT Samson Reese MD LAB URINE ORDERABLES Final Result [facility] [address] [place] [address], * Colonoscopy (12/14/2017) [facility] Colonoscopy Normal Normal Historical Provider HEALTH MAINTENANCE Final Result from Last 3 Months or Most Recently Relevant to Health Maintenance Insurance [id number] [employer] [facility] OPTIONS (O D-SNP) MARTY GUZMAN [id number] Care Teams Dip Guider Stoves Relationship Specialty Start Date End Date Samson Stone MD [address] [place] [phone] PCP - General Internal Medicine 05/12/21
--- OUTSIDE RECORDS SUMMARY | 2024-12-25 16:25 | XMS_ITS | Encounter Summary ---
Author Organization [employer] Address [address] [place] [address] [address] [place] [address] Care Team Providers Care Medical Service Technician Name Role Phone Samson Stone MD Primary Care Provide r Reason for Visit * Reason Onset Date Comments Medical Protection 07/17/2022 Encounter Details Date Type Department Care Team (Late st Contact Info) Description 07/17/2022 Telephone [facility] MEDICINE [address], [place] [phone] Samson Stone MD [address] [place], [place] [phone] Medical Protection Social History Tobacco Use Types [...] be shut off today. 07/30/22Please contact at [phone] Call pt at [phone] * Telephone Encounter - Kat Chambers - 07/17/2022 1:15 PM EDT Tc from pt and [facility] requesting a Medical protection service due to having shut down soon for pt electric bill. Please contact pt at [phone] [place] Speaker documented in this encounter Plan of Treatment Upcoming Encounters Date Type Department Care Team (Late st Contact Info) Description 02/26/2025 1:00 PM EST Office Visit [facility] OPTOMET[facility] [address] [place], [place] [phone] Ofelia Guerrero, OD [address] [place] [address] documented as of this encounter Visit Diagnoses Not on filedocumented in this encounter Care Teams Medical Service Technician Relationship Specialty Start Date End Date Samson Stone MD [address] [place] [address] PCP - General Internal Medicine 05/12/21 documented as of this encounter
[2024-12-25 17:05] LABS: Microalbum/Creatinine Ratio Ur 17.7 ug/mg cr (<30)
== END 2024-12-25 14:35 | disposition home or self-care (01) ==
LOC: HO.LAB 14:34
PROVIDERS: PCP Internal Medicine; Visit Provider Internal Medicine
DX: R07.81 Pleurodynia (principal); I10 Essential (primary) hypertension
CPT/HCPCS: 71101; 82043; 82570

== ENCOUNTER → 2024-12-25 14:42 | Outpatient (BNV) | payer OTHER, SELFPAY | PROVIDERS: PCP Internal Medicine; Visit Provider Radiology Diagnostic Radiology | DX: R07.89 Other chest pain (principal) | CPT/HCPCS: 71101 ==

== ENCOUNTER 2025-03-05 11:31 | Outpatient (AMB) | payer OTHER, SELFPAY ==
--- NOTE | 2025-03-05 11:32 | A.OFFVIS_ITS ---
Vital Signs 03/05/25 11:34 Height 5 ft Weight 105 lb 13.15 oz BMI 20.7 BP 136/68 Blood Pressure Location Rt brachial Position Sitting Pulse 58 Pulse Source Pulse Oximeter Pulse Oximetry (%) 99 Oxygen Delivery Method Room Air Intake Visit Reasons: Abnormal CT scan Allergies aspirin (Aspirin) Allergy (Mild, Unverified 03/05/25 11:39) RASH Aspirin Allergy (Unknown, Uncoded 03/05/25 11:39) rash HPI HPI Abnormal CT scan: Details: Miri is a pleasant 74 year old female, current 60+ pack year smoker, with underlying asthma, GERD, DMII, CKD, HTN, h/o uterine cancer s/p hysterectomy and h/o atrial tachycardia s/p ablation in 2009. She was referred by her primary care provider for an abnormal chest CT scan. She has no history of previous abnormal CT scans. The chest CT 11/2024 demonstrated a ring-like structure in the right main stem bronchus, possibly aspiration of foreign material. In terms of respiratory history, the patient was diagnosed with asthma at age 43 and reports a chronic cough productive of white sputum. She denies dyspnea, wheezing or chest tightness. She uses Advair BID and an albuterol inhaler infrequently, stating her symptoms are well-controlled. She has a history of recurrent pneumonia, including a hospitalization a couple of months ago, and has been hospitalized for it a couple of times total. The patient has a significant smoking history, having started at age 22 and continuing to the present. She smoked two packs per day for many years and has recently reduced her intake to half a pack per day. She also has a history of significant secondhand smoke exposure. Past medical history is notable for uterine cancer 25 years ago, treated with a hysterectomy without chemotherapy or radiation. She has a history of atrial tachycardia managed by a olive brine tester, for which she has had an ablation, and reports occasional palpitations when lying down. A couple of months ago, she experienced a 30-pound weight loss over a month and a half period, dropping to 75 pounds; she has since regained weight to 105 pounds. The weight loss was associated with stomach pain and she was diagnosed with ulcers or acid reflux, for which she takes daily medication. She reports her mother had lung cancer and was a heavy smoker. The patient reports environmental allergies or occupational exposures. [facility] Medical History (Updated 03/05/25 @ 12:52 by Sulma Wheat NP) CAD (coronary artery disease) Atrial fibrillation Hypertension Hyperlipidemia Type 2 diabetes mellitus Hypothyroidism GERD (gastroesophageal reflux disease) Asthma Nicotine dependence, cigarettes, uncomplicated Osteoporosis Surgical History (Updated 11/13/22 @ 14:05 by Priscilla Conley PA-C) History of cardiac cath History of cardiac radiofrequency ablation History of laparoscopic cholecystectomy History of hysterectomy History of bilateral salpingo-oophorectomy Social History (Updated 03/05/25 @ 11:39 by Jenna Can CMA) Patient Tobacco Use Status: Current everyday Tobacco user Cigarette Packs Per Day: 0.5 Cigarettes Per Day: 10 Review of Systems Const Denies chills, Denies excessive sweating, Denies fever(s), Denies headache(s) and Denies night sweats Eyes Denies dry eyes, Denies irritation and Denies itchy eyes ENT Reports Normal hearing present, Denies headache(s), Denies nasal congestion, Denies nasal discharge, Denies post nasal drip and Denies sore throat Card Denies chest pain, Denies chest pain at rest, Denies chest pain with activity, Denies claudication, Denies leg edema, Denies dyspnea, Denies dyspnea on exertion, Denies orthopnea and Denies paroxysmal nocturnal dyspnea Resp Denies chest congestion, Denies excessive phlegm production, Denies pain on inspiration, Denies pain with cough, Denies dyspnea, Denies dyspnea on exertion, Denies stridor and Denies wheezing Musc Denies myalgias Neuro Reports Normal hearing present and Denies headache(s) Endo Denies excessive sweating Leonid/Lymph Denies lymphadenopathy Aller/Immun Denies itchy eyes, Denies seasonal rhinorrhea and Denies wheezing Physical Exam Vital Signs: BMI result Body Mass Index 20.7 Const General: cooperative, healthy appearing, comfortable, no acute distress, well developed and alert Nutritional Appearance: thin Orientation/consciousness: patient oriented x3 Limitations: no limitations HEENT Head: Yes normal to inspection, Yes normocephalic and Yes atraumatic Ears: hearing grossly normal bilaterally and external ears normal Eyes General: appearance normal, both eyes and all related structures Eyelids: Yes eyelids normal Sclerae: sclerae normal EOM: EOMs intact bilaterally Neck Neck: Yes normal visual inspection and Yes no lymphadenopathy Lymphatic: no lymphadenopathy noted Chest Chest palpation & inspection: normal inspection of the chest Resp Effort & Inspection: normal respiratory effort, able to speak in complete sentences, no audible wheezes, no cough, no stridor, not tachypneic, no tripod positioning and no use of accessory muscles Auscultation: clear to auscultation bilaterally Cardio Jugular venous distension: no JVD Rate: regular rate Rhythm: regular rhythm Skin Other: warm, dry General skin exam: no rashes or lesions noted Neuro General: patient oriented x3 Cranial nerves: Yes Normal hearing present Cognition (Neuro): normal cognition Gait exam (Neuro): Normal gait present Extrem General: Yes normal to inspection, Yes capillary refill normal, Yes no clubbing, cyanosis or edema and Yes no pedal edema Psych Appearance: grossly normal and well kempt Speech and movement: Normal speech and movement present and Clear speech present Affect: normal affect Attitude: cooperative Thought process: Normal thought process present Thought content: Normal thought content present Insight: Good insight present (Psych) Judgement: Good judgement present (Psych) Results Reviewed Results Reviewed: RESULT: CT Chest W/O Contrast CT Chest W/O Contrast INDICATION: Hx of Present Illness: Pt is coming from [employer] after a mechanical fall. pt states she fell, landing on her right arm left leg? endorsing pain in both of those extermities. small abraision to right knee. pt denies headstrike, or LOC. Pt not on thinners.; Reason: Other:; Chest Pain; Clinical Question(s): Interstitial Alveolar Infiltration TECHNIQUE: Helical CT scan of the chest without IV contrast, formatted in 3 planes. Weight-based protocol was performed using automatic exposure control. CTDIvol Body: 3.60 mGy, DLP Body: 121 mGy*cm. COMPARISON: 05/13/2024 FINDINGS: Regional Business Development Manager view findings, lines and tubes: None. Trachea and airways: Mucous in the left mainstem bronchus. Lungs and pleura: Mild dependent atelectasis. No contusion, consolidation, or laceration. No effusion or pneumothorax. Mediastinum and angel: No mass or hematoma. No mediastinal or hilar lymp hadenopathy. No esophageal abnormality. Heart: Heart is normal in size. No pericardial effusion. Moderate coronary artery calcification. Aorta: Mild vascular calcification but no aneurysm. Pulmonary arteries: Normal caliber. Chest wall soft tissues: No acute abnormality. Diaphragm: Intact. Upper abdomen: Prior cholecystectomy. Unchanged left adrenal thickening. Bones: No acute abnormality. Healing nondisplaced fracture of the right anterior second rib. Chronic nondisplaced right posterolateral fifth and sixth rib fractures. Unchanged nonaggressive appearing lucent lesion in the T12 vertebral body with an rim of sclerosis. Mild degenerative changes of the spine. IMPRESSION: No evidence of acute abnormality. WSN: [id number] Ordering Physician: Thiago Aviles Reason For Exam Chest Pain;Other: Signature Line Dictated By: Enrrique Arellano MD Dictated Date/Time: 10/28/24 3:55 pm Reviewed By: Enrrique Arellano MD Signed By: Enrrique Arellano MD Signed Date/Time: 10/28/24 3:55 pm Transcribed By: [place] [id number] CT Scan Report Signed Patient: Miri Diaz MR#: [id number] : 1950 Acct:[id number] Age/Sex: 74 / F ADM Date: 12/08/24 Loc: HO.CT Attending Dr: Samson Lorenz MD Ordering Physician: Samson Lorenz MD Date of Service: 12/08/24 Procedure(s): CT chest wo IV con Accession Number(s): [id number] cc: Samson Lorenz MD~ Report Number: [id number]: Total DLP = 248.00 mGy-cm Reason for Exam: heavy smoker with > 20 lbs weight loss, needs to rule out lung malignancy EXAMINATION: CT CHEST WITHOUT IV CONTRAST, CT ABDOMEN PELVIS WITH IV CONTRAST INDICATION: heavy smoker with > 20 lbs weight loss, needs to rule out lung malignancy COMPARISON: There are no prior studies available for comparison.. TECHNIQUE: CT scan of the chest, abdomen and pelvis was performed following administration of 85 mL Omnipaque 350 using standard departmental protocol. The chest was scanned prior to the administration of intravenous contrast. Coronal and sagittal reformatted images were generated and reviewed. The patient received oral contrast material. This CT exam was performed with one or more of the following dose reduction techniques: automated exposure control, adjustment of the mA and/or kV according to patient size, use of iterative reconstruction technique. DLP: 248 mGy-cm CHEST: THYROID: The thyroid is unremarkable. LUNGS: There is minimal subsegmental atelectasis versus scarring at the lung bases. The lungs are otherwise clear. MEDIASTINUM: There is no mediastinal lymphadenopathy. ANGEL: There is no hilar lymphadenopathy. CARDIOVASCULATURE: The heart is normal in size. There is no pericardial effusion. The thoracic aorta is normal in caliber. DEGREE OF CORONARY CALCIFICATION: severe PLEURA: There is no pleural effusion. No pneumothorax. MAIN AIRWAYS: The mainstem bronchi and proximal branches are patent. There is a hollow ring shaped structure in the left mainstem bronchus (series 4, images 65-68; series 6, images 41-44; and series 7 image 43) this may represent an aspirated foreign body. AXILLA: There is no axillary lymphadenopathy. SOFT TISSUES: Unremarkable. BONES: The bones are diffusely osteopenic. There are multiple old right rib fractures. ABDOMEN: LIVER: The liver is normal in size and contour. No liver mass is identified. The hepatic and portal veins are patent. GALLBLADDER / BILE DUCTS: The gallbladder is surgically absent. There is no intra or extrahepatic biliary ductal dilatation. SPLEEN: The spleen is normal in size. No focal splenic lesion is identified. PANCREAS: The pancreas is unremarkable in appearance. ADRENAL GLANDS: Within normal limits. KIDNEYS/RETROPERITONEUM: No renal calculi are identified. There is no hydronephrosis. No renal masses are identified. LYMPH NODES: No abdominal or pelvic lymphadenopathy. VASCULATURE: The abdominal aorta demonstrates atherosclerotic calcification, but is normal in caliber. MESENTERY/PERITONEUM: No free fluid. No masses. There is no free intraperitoneal gas. STOMACH: The stomach is unremarkable. SMALL BOWEL: The small bowel is normal in caliber. COLON: There is a very large amount of stool throughout the colon. APPENDIX: The appendix is not seen, however no inflammatory changes are seen adjacent to the cecum. URINARY BLADDER/PELVIC ORGANS: The urinary bladder is collapsed, limiting detailed evaluation. The patient is status post hysterectomy. BONES / SOFT TISSUES: The bones are diffusely osteopenic. CT/CT chest wo IV con IMPRESSION: 1. Diffuse osteopenia of all of the visualized osseous structures. The possibility of multiple myeloma is raised. Laboratory evaluation is suggested. 2. Hollow, ringlike structure in the left mainstem bronchus which could represent an aspirated foreign body. 3. Very large amount of stool throughout the colon. Electronically signed by: Apolinar Pagan MD 12/08/2024 03:11 PM EDT RP Dictated By: Apolinar Pagan MD Signed By: <Electronically signed by Apolinar Pagan MD in OV> 12/08/24 1511 DD/ 1427 Assessment & Plan Assessment & Plan (1) Abnormal chest CT: Code(s): R93.89 - Abnormal findings on diagnostic imaging of other specified body structures Category: Medical (2) Asthma: Code(s): J45.909 - Unspecified asthma, uncomplicated Category: Medical (3) Nicotine dependence, cigarettes, uncomplicated: Code(s): F17.210 - Nicotine dependence, cigarettes, uncomplicated Category: Medical Plan Reviewed the patient's November chest CT scan with her, pointing out the ring- like finding in the right main stem bronchus and explaining that it may represent mucus. Outlined the diagnostic plan, which starts with a repeat CT scan in 3 months (now) to check for resolution. Explained that if the finding are persistent, the next step would be a bronchoscopy to obtain a tissue sample for definitive diagnosis. We discussed that while lung cancer is a consideration given her smoking history and can be asymptomatic initially, malignancy can not be ruled out. Recommended initiating annual lung cancer screening with low-dose CT scans, explaining the follow-up stacy of 3 months, then 6 months, then yearly if scans remain reassuring. Recommended she undergo a pulmonary function test to better characterize her obstructive lung disease and differentiate between asthma and COPD, and explained the nature of the test. Strongly encouraged her to continue her efforts to quit smoking, emphasizing it is the single most important intervention for her lung health. Also recommended she get her influenza and pneumonia vaccinations. The patient and her daughter verbalized understanding of the plan to schedule the CT scan and PFT, with a follow-up visit to discuss the results. All questions were answered and patient is in agreement of plan. Will follow up to review results or sooner if needed. Orders: Orders PFT pulmonary function test Today F17.210 - Nicotine dependence, cigarettes, uncomplicated, J45.909 - Unspecified asthma, uncomplicated CT chest wo IV con Today F17.210 - Nicotine dependence, cigarettes, uncomplicated, R93.89 - Abnormal findings on diagnostic imaging of other specified body structures Coding Level of Care Code New Pt Level 4 (25167) Complex visit Add On G2211 Diagnoses Abnormal chest CT R93.89 Asthma J45.909 Nicotine dependence, cigarettes, uncomplicated F17.210
[2025-03-05 11:34] VITALS: BP 136/68; PULSE 58; O2SAT 99; BMI 20.7
== END 2025-03-05 12:09 | disposition home or self-care (01) ==
LOC: HO.HPS 11:32
PROVIDERS: PCP Internal Medicine; Referring Provider Internal Medicine; Visit Provider Nurse Practitioner Family
DX: R93.89 Abnormal findings on diagnostic imaging of other specified body structures (principal); J45.909 Unspecified asthma, uncomplicated; F17.210 Nicotine dependence, cigarettes, uncomplicated
CPT/HCPCS: 99204; G2211

== ENCOUNTER → 2025-03-05 11:31 | Outpatient (BNVA) | payer OTHER, SELFPAY | PROVIDERS: PCP Internal Medicine; Referring Provider Internal Medicine; Visit Provider Nurse Practitioner Family | DX: R93.89 Abnormal findings on diagnostic imaging of other specified body structures (principal); F17.210 Nicotine dependence, cigarettes, uncomplicated; J45.909 Unspecified asthma, uncomplicated | CPT/HCPCS: 99202 ==